=== PATIENT | female | born 1955 | race Caucasian/White ===

== ENCOUNTER 2025-06-06 18:38 | Inpatient (IN) | payer MEDICARE, SELFPAY ==
--- NOTE | 2025-06-06 18:54 | CT_ITS ---
PROCEDURE INFORMATION: Exam: CT Abdomen And Pelvis With Contrast Exam date and time: 06/06/2025 8:37 PM Age: 69 years old Clinical indication: Abdominal pain; Additional info: Rlq pain, n/v/d, appendicitis? TECHNIQUE: Imaging protocol: Computed tomography of the abdomen and pelvis with contrast. Radiation optimization: All CT scans at this facility use at least one of these dose optimization techniques: automated exposure control; mA and/or kV adjustment per patient size (includes targeted exams where dose is matched to clinical indication); or iterative reconstruction. Contrast material: ISOVUE; Contrast volume: 75 ml; Contrast route: IV; COMPARISON: No relevant prior studies available. FINDINGS: Liver: Normal. No mass. Gallbladder and biliary ducts: Gallbladder is surgically absent. Moderate diffuse biliary ductal dilation. Pancreas: Normal. No ductal dilation. Spleen: Normal. No splenomegaly. Adrenal glands: Normal. No mass. Kidneys and ureters: Simple appearing bilateral renal cortical cysts, the largest measuring 5.8 cm of the lower pole of the right kidney. 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 No evidence of solid renal mass or hydronephrosis. Stomach and bowel: Moderate sigmoid diverticulosis. No bowel wall thickening or evidence of bowel obstruction Appendix: The appendix is significantly enlarged (20 mm maximum diameter) with prominent diffuse wall thickening and surrounding inflammation compatible with acute appendicitis. No evidence of appendicular abscess or perforation. Intraperitoneal space: Unremarkable. No free air. No significant fluid collection. Vasculature: Moderate atherosclerotic calcification throughout the distal aorta and iliac arteries. No evidence of aneurysm or dissection. Lymph nodes: Unremarkable. No enlarged lymph nodes. Urinary bladder: Unremarkable as visualized. Reproductive: Mildly enlarged and lobulated uterus with coarse calcifications compatible with leiomyomas. No adnexal abnormality. Bones/joints: Moderate to severe degenerative disc changes with disc bulge and uncovertebral spurring throughout the lower spine. Severe multilevel facet arthropathy with grade 1 anterolisthesis of L2. Moderate multilevel anterior osteophyte formation throughout the lower thoracic spine. No vertebral body compression. No acute fracture. Bilateral hip prostheses noted. Soft tissues: Unremarkable. IMPRESSION: Significant findings of acute appendicitis. No evidence of rupture or abscess. COMMENTS: Consistent with the [employer]'s Incidental Findings Committee white paper (J Am Lindsey Radiol 2018): Any incidental renal lesion less than 1 cm or classified as too small to characterize, or any incidental cystic renal lesion characterized as simple-appearing, is likely benign. No follow-up imaging is recommended for these lesions per consensus recommendations based on imaging criteria. THIS REPORT CONTAINS FINDINGS THAT MAY BE CRITICAL TO PATIENT CARE. The findings were verbally communicated via telephone conference with Zach Florentino at 9:22 PM EST on 06/06/2025. The findings were acknowledged and understood.
[2025-06-06 18:56] VITALS: BP 162/95; PULSE 120; RESP 18; TEMP 37.3; O2SAT 96; BMI 34.3
--- NOTE | 2025-06-06 18:56 | HMH.EDGENADL ---
Discharge Plan Disposition Patient Disposition: Home, Self-Care Condition: Good Clinical Impressions Clinical Impression: Acute appendicitis, Hypomagnesemia Discharge ED Provider: Zach Florentino General Adult HPI General Chief complaint: Abdominal Pain Stated complaint: Vomiting, diarrhea, fatigue, Pain on right side Time Seen by Provider: 06/06/25 18:49 History of Present Illness HPI narrative: Alondra Ribeiro is a 69-year-old female with a history of cholecystectomy, hip replacements who presents to the emergency department for complaints of nausea, vomiting and diarrhea lower quadrant abdominal pain. Patient states that she was woken at 2:00 this morning with nausea, vomiting and diarrhea. She describes her vomit as nonbloody. Her diarrhea is nonbloody. She states that throughout the day, she has had worsening right lower quadrant pain that worsens with palpation. She denies any fevers. She has not been able to keep any food or liquid down. No known sick contacts. Related Data Home Medications ?Medication ?Instructions ?Recorded ?Confirmed duloxetine 30 mg capsule,delayed 30 mg PO DAILY 06/06/25 06/06/25 release hydrocodone 10 mg-acetaminophen 1 tab PO Q4HP PRN Moderate Pain 06/06/25 06/07/25 325 mg tablet (Scale Score 5-6) nabumetone 750 mg tablet 750 mg PO BID 06/06/25 06/06/25 Allergies Allergy/AdvReac Type Severity Reaction Status Date / Time No Known Allergies Allergy Verified 06/06/25 19:01 [facility] Disclaimer: The information contained in this section may have been updated after the patient was seen, as this information can be updated by other users. Social History (Updated 06/07/25 @ 07:00 by Yann Turner CRNA) Smoking Status: Current every day smoker alcohol intake: never substance use type: denies use current occupational status: retired Travel in the last 8 weeks?: None Have you lived/traveled outside [place] in past 30 days?: No Contact w/someone who lives/traveled outside US past 30 days?: No Exposure to someone with infectious disease in past 14 days?: No Do you have a fever (greater than 100.4 F or 38 C)?: No Have you tested positive for COVID-19?: No Exposed to someone with COVID-19 in past 14 days?: No Do you have a sore throat?: No Do you have a cough?: No Do you have any weakness?: No Are you experiencing any nausea/vomitting?: No Do you have any diarrhea?: No Are you experiencing any unusual bleeding?: No Do you have any muscle aches/pain?: No Do you have any abdominal pain?: No Are you experiencing loss of taste or smell?: No ROS Obtained: Yes Systems reviewed as appropriate & no additional complaints except as documented Physical Exam General General appearance: alert Comment: appears uncomfortable Head Head exam: atraumatic Eye Eye exam: Present normal appearance ENT ENT exam: Present normal external ear exam Neck Neck exam: Present full ROM Chest Chest inspection: Present symmetric chest wall rise Respiratory Respiratory exam: Present normal lung sounds bilaterally; Absent respiratory distress, wheezes or stridor Cardiovascular Cardiovascular exam: Present normal rhythm and tachycardia Abdominal Exam Abdominal exam: Present soft, tenderness (RLQ, suprapubic), guarding (RLQ), rebound, obturator sign, Rovsing's sign and tenderness at McBurney's Point; Absent rigidity or heel tap sign Extremities Exam Extremities exam: Present normal inspection Back Exam Back exam: Present normal inspection Neurological Exam Neurological exam: Present alert and oriented X3 Psychiatric Psychiatric exam: Present normal affect Skin Skin exam: Present warm and dry Medical Decision Making Medical Records Screening: Per USPSTF and CDC recommendations, given the prevalence of disease in our region, it is our hospital?s policy to screen for HIV and viral Hepatitis for all patients aged 18 and over and those with ongoing risk factors. Uday Inquiry Pt receiving controlled substance: No Vital Signs: 06/06/25 18:56 06/06/25 19:22 06/06/25 22:04 Temperature 99.1 F Temperature Source Oral Pulse Rate 107 H 98 H Pulse Rate [Right Radial] 120 H Respiratory Rate 18 21 18 Blood Pressure 141/84 H 144/78 H Blood Pressure [Right Arm] 162/95 H Blood Pressure Mean [Right Arm] 117 Blood Pressure Source [Right Arm] Automatic Cuff Blood Pressure Position [Right Arm] Sitting 02 Sat by Pulse Oximetry 96 95 95 Oxygen Delivery Method Room Air Room Air Room Air 06/06/25 22:10 06/06/25 22:17 Temperature 98.6 F Temperature Source Pulse Rate 98 H Pulse Rate [Right Radial] Respiratory Rate 18 Blood Pressure 144/78 H Blood Pressure [Right Arm] Blood Pressure Mean [Right Arm] Blood Pressure Source [Right Arm] Blood Pressure Position [Right Arm] 02 Sat by Pulse Oximetry Oxygen Delivery Method Room Air Room Air Lab Data Lab Results 06/06/25 18:58: WBC 17.1 H, RBC 4.50, Hgb 15.3, Hct 43.4, MCV 96.4, MCH 34.0 H, MCHC 35.3, RDW 13.1, Plt Count 255, MPV 11.2 H, Neut % (Auto) 86.3 H, Lymph % (Auto) 7.3 L, [place] % (Auto) 5.6, Eos % (Auto) 0.0 L, Baso % (Auto) 0.1, Neut # (Auto) 14.7 H, Lymph # (Auto) 1.3, [place] # (Auto) 1.0, Eos # (Auto) 0.0, Baso # (Auto) 0.0, Sodium 136, Potassium 4.4, Chloride 101, Carbon Dioxide 23, Anion Gap 16.4 H, BUN 18 H, Creatinine 0.50 L, Estimated Creat Clear 78, Estimated GFR 123, Est GFR ( Amer) 149, Glucose 137 H, Lactate 1.5, Calcium 9.6, Magnesium 1.5 L, Total Bilirubin 0.9, AST 35, ALT 27, Alkaline Phosphatase 79, C-Reactive Protein 37.6 H, Total Protein 8.1, Albumin 4.7, Globulin 3.4 H, Albumin/Globulin Ratio 1.4, Lipase 18 L, HCV Ab ROCHELLE w/Rflx PCR Qn Negative, HIV Ag/Ab Combo Qual Negative 06/06/25 21:11: Urine Color Yellow, Urine Appearance Clear, Urine pH 6.0, Ur Specific [place] 1.010, Urine Protein Negative, Urine Glucose (UA) Negative, Urine Ketones Negative, Urine Blood Trace-i, Urine Nitrate Negative, Urine Bilirubin Negative, Urine Urobilinogen 0.2, Ur Leukocyte Esterase Negative, Urine RBC None, Urine WBC Occasional, Ur Squamous Epith Cells Occasional, Urine Bacteria None 06/07/25 05:42 06/07/25 05:42 Orders (Tests/Meds): ED MEDICATIONS Generic Name Dose Route Start Last Admin Trade Name Freq PRN Reason Stop Dose Admin Hydromorphone HCl 0.5 mg 06/07/25 10:39 Hydromorphone 2mg/Ml Syringe IV 06/07/25 12:39 Q5MINP PRN Severe Pain (7-10) Sodium Chloride 1,000 mls @ 100 mls/hr 06/06/25 22:45 06/07/25 11:11 Sod Chlor 0.9% 1000ml Bag IV 07/06/25 22:44 100 mls/hr .Q10H HAYLIE Administration Piperacillin Sod/Tazobactam 50 mls @ 100 mls/hr 06/07/25 04:00 06/07/25 11:42 Sod 3.375 gm/ Sodium Chloride IV 06/17/25 03:59 Infused Q6H HAYLIE Infusion Lactated Ringer's 1,000 mls @ 25 mls/hr 06/07/25 06:45 06/07/25 06:40 Lactated Ringer's 1000 Ml Bag IV 07/07/25 06:44 25 mls/hr .Q25H HAYLIE Administration Lactated Ringer's 1,000 mls @ 25 mls/hr 06/07/25 10:45 06/07/25 11:19 Lactated Ringer's 1000 Ml Bag IV 06/07/25 12:44 Not Given .Q25H HAYLIE Meperidine HCl 12.5 mg 06/07/25 10:39 Meperidine 25mg/Ml 1ml Syringe IV 06/07/25 12:39 Q5MINP PRN Shivering Morphine Sulfate 4 mg 06/06/25 22:34 06/07/25 05:37 Morphine 2mg/Ml Syringe IV 07/06/25 22:32 4 mg Q4HP PRN Administration Severe Pain (7-10) Morphine Sulfate 2 mg 06/07/25 10:39 Morphine 2mg/Ml Syringe IV 06/07/25 12:39 Q5MINP PRN Moderate Pain (4-6) Naloxone HCl 0.4 mg 06/07/25 10:39 Naloxone 0.4mg/Ml Vial IV 06/07/25 12:39 Q3MINP PRN Decreased Respirations Ondansetron HCl 4 mg 06/06/25 22:33 06/06/25 23:08 Ondansetron 4mg/2ml Vial IV 07/06/25 22:32 4 mg Q6HP PRN Administration Nausea Ondansetron HCl 4 mg 06/07/25 10:39 Ondansetron 4mg/2ml Vial IV 06/07/25 12:39 Q6HP PRN Nausea Promethazine HCl 6.25 mg 06/07/25 10:39 Promethazine Hcl 25mg/Ml 1ml Vial IV 06/07/25 12:40 [id number] PRN Nausea And Vomiting Sodium Chloride 10 ml 06/06/25 22:33 Sodium Chloride 0.9% 10ml Flush Syringe IV 07/06/25 22:32 NEEDED PRN Maintain IV Site Sodium Chloride 10 ml 06/07/25 10:39 Sodium Chloride 0.9% 10ml Flush Syringe IV 07/07/25 10:38 NEEDED PRN Maintain IV Site Sodium Chloride 25 ml 06/07/25 10:39 Sodium Chloride 0.9% 25ml Bag IV 06/07/25 12:40 NEEDED PRN for Use with IV Promethazine Discontinued Medications Generic Name Dose Route Start Last Admin Trade Name Freq PRN Reason Stop Dose Admin Lactated Ringer's 1,000 mls @ 999 mls/hr 06/06/25 18:54 06/07/25 07:31 Lactated Ringer's 1000 Ml Bag IV 06/06/25 19:54 Infused .Q1H1M ONE Infusion Magnesium Sulfate 2 gm in 50 mls @ 50 mls/hr 06/06/25 19:24 06/06/25 21:53 Magnesium Sulfate 2gm/50ml Premix IV 06/06/25 20:23 Infused ONCE ONE Infusion Piperacillin Sod/Tazobactam 100 mls @ 200 mls/hr 06/06/25 21:42 06/07/25 07:31 Sod 4.5 gm/ Sodium Chloride IV 06/06/25 22:11 Infused ONCE ONE Infusion Iopamidol 75 ml 06/06/25 20:41 06/06/25 20:41 Iopamidol-370 (76%);100ml Bottle IV 06/06/25 20:42 75 ml ONCE ONE Administration Morphine Sulfate 4 mg 06/06/25 18:54 06/06/25 19:11 Morphine 4mg/Ml Syringe IV 06/06/25 18:55 4 mg ONCE ONE Administration Morphine Sulfate 2 mg 06/06/25 22:33 Morphine 2mg/Ml Syringe IV 07/06/25 22:32 Q4HP PRN Severe Pain (7-10) Ondansetron HCl 4 mg 06/06/25 18:57 06/06/25 19:11 Ondansetron 4mg/2ml Vial IV 06/06/25 18:58 4 mg ONCE ONE Administration Sodium Chloride 10 ml 06/06/25 20:41 06/06/25 20:41 Sodium Chloride 0.9% 10ml Syr (Rad Only) IV 07/06/25 20:40 10 ml NEEDED PRN Administration Maintain IV Site Sodium Chloride 10 ml 06/07/25 06:34 Sodium Chloride 0.9% 10ml Flush Syringe IV 07/07/25 06:33 NEEDED PRN Maintain IV Site ORDERS Category Date Time Status CT abdomen pelvis w con Stat Cat Scan 06/06/25 18:54 Completed CBC w/Auto Diff [Complete Blood Count Auto Diff] Stat Lab 06/06/25 18:58 Completed CMP [Comprehensive Metabolic Panel] Stat Lab 06/06/25 18:58 Completed CRP [C-Reactive Protein] Stat Lab 06/06/25 18:58 Completed Lactic Acid Stat Lab 06/06/25 18:58 Completed Lipase Stat Lab 06/06/25 18:58 Completed Magnesium Stat Lab 06/06/25 18:58 Completed UA [Urinalysis and Microscopic] Stat Lab 06/06/25 21:11 Completed Medical Decision Narrative: Alondra Ribeiro is a 69-year-old female with a history of cholecystectomy, hip replacements who presents to the emergency department for complaints of nausea, vomiting and diarrhea lower quadrant abdominal pain. Patient states that she was woken at 2:00 this morning with nausea, vomiting and diarrhea. She describes her vomit as nonbloody. Her diarrhea is nonbloody. She states that throughout the day, she has had worsening right lower quadrant pain that worsens with palpation. She denies any fevers. She has not been able to keep any food or liquid down. No known sick contacts. On arrival, patient is tachycardic, hypertensive, afebrile and maintaining appropriate oxygen saturation on room air. Physical exam, as stated above, revealed a nontoxic-appearing female who appears somewhat uncomfortable. Cardiopulmonary exam revealed tachycardia without murmur or rub. Abdomen shows tenderness in the right lower quadrant with guarding in this area. Positive obturator sign. Positive Rovsing sign. Negative heeltap sign. Abdomen is not rigid/peritonitic. Differential diagnosis includes, but is not limited to: Acute appendicitis, diverticulitis, gastroenteritis, colitis, urinary tract infection, among others. The most morbid conditions were considered and workup was based on these. Patient was administered 1 L lactated ringer, 4 mg of IV morphine, 4 mg of IV Zofran Laboratory studies show leukocytosis with neutrophilia. No anemia. Platelets within normal limits. Electrolytes within normal limits. No RODRICK. Anion gap mildly elevated at 16.4. Mild hypomagnesemia of 1.5. Will replete magnesium with 2 g IV magnesium sulfate. Liver enzymes and bilirubin within normal limits. CRP is elevated at 37.6. Lipase normal at 18. Lactate normal at 1.5. CT imaging was interpreted by me personally. Patient has a grossly enlarged appendix at 20 mm with wall thickening and surrounding inflammatory changes consistent with acute appendicitis but no evidence of abscess or perforation. See radiology report for details. I did discuss patient's case with Dr. Rayo with general surgery who recommended admission, IV antibiotics and likely surgical intervention in the morning. On reassessment, patient remains in stable condition. Her tachycardia is improving. Pain is better controlled at this time. I discussed these results with her and plan as mentioned above and she is in agreement with this plan. Will administer 4.5 g of IV Zosyn. I did discuss patient's case with Dr. Vasquez with the hospital medicine service who agreed to admit the patient for further management. Critical Care Critical Care Time Critical Care Time: Yes Attestation: On 06/06/25, the high probability of a clinically significant, sudden or life threatening deterioration of the following system(s) required my full and direct attention, intervention and personal management. The time I documented below is in addition to time spent performing reported procedures but includes the following listed in this critical care notation. Total Time Total Critical Care Time: 35
[2025-06-06 19:04] LABS: Hematocrit 43.4 % (37.0-47.0); Hemoglobin 15.3 g/dL (12.2-16.2); Immature Granulocytes % 0.7 %; Mean Corpuscular HGB Conc 35.3 g/dL (31.8-35.4); Mean Corpuscular Hemoglobin 34.0 pg (27.0-31.2); Mean Corpuscular Volume 96.4 fl (81-99); Nucleated Red Blood Cells % 0 %; Platelet Count 255 K/mm3 (142-424); Red Blood Count 4.50 M/mm3 (4.20-5.40); Red Cell Distribution Width-SD 46.5 fL; White Blood Count 17.1 K/mm3 (4.8-10.8)
[2025-06-06] MEDS: LACTATED RINGERS 1000ML 1,000 ML 999 ML IV (19:11)
[2025-06-06] MEDS: MORPHINE 4MG/ML SYRINGE 4 MG IV (19:11)
[2025-06-06] MEDS: ONDANSETRON 4MG/2ML VIAL 4 MG IV ×2 (19:11→23:08)
[2025-06-06 19:13] LABS: Albumin Level 4.7 g/dl (3.5-5.0); Chloride 101 mmol/L (98-107); Potassium 4.4 mmoL/L (3.5-5.1); Sodium 136 mmol/L (136-145)
[2025-06-06 19:16] LABS: Alanine Aminotransferase 27 U/L (12-78); Albumin/Globulin Ratio 1.4 (1.1-1.8); Alkaline Phosphatase 79 U/L (38-126); Anion Gap 16.4 mEq/L (5-15); Aspartate Amino Transferase 35 U/L (14-36); Bilirubin,Total 0.9 mg/dl (0.2-1.3); Blood Urea Nitrogen 18 mg/dl (7-17); Calcium 9.6 mg/dl (8.4-10.2); Carbon Dioxide 23 mmol/L (22.0-30.0); Creatinine Clearance Estimated 78 mL/min (50-200); Creatinine,Serum 0.50 mg/dl (0.52-1.04); Estimated Glomerular Filt Rate 123 ml/min (>60); GFR (African American) 149 ML/MIN (>60); Globulin 3.4 g/dL (1.3-3.2); Glucose 137 mg/dl (74-100); Lipase 18 U/L (23-300); Magnesium 1.5 mg/dl (1.6-2.3); Total Protein,Serum 8.1 g/dl (6.3-8.2)
--- OUTSIDE RECORDS SUMMARY | 2025-06-06 19:17 | XMS_ITS | Clinical Summary ---
Author Organization [facility] Address [address] [place] [id number] Care Team Providers Care Patient Support Partner Name Role Phone Unavailable Primary Care Provider Unavailabl e Social History Tobacco Use Types Packs/Day Years Used Date Smoking Tobacco: Never Assessed Comments Unknown Sex and Gender Information Value Date Recorded Sex Assigned at Not on file Legal Sex Female 10:04 PM EST Gender Identity Not on file Sexual Orientation Not on file Plan of Treatment Not on file
--- OUTSIDE RECORDS SUMMARY | 2025-06-06 19:18 | XMS_ITS | Clinical Summary ---
Author Organization [facility] Address [address] [place] [address] [address] [facility] [id number] Phone Care Team Providers Care Acoustic Sensor Operator Name Role Phone Fam Whitehead MD Primary Care Provider Unava ilable Allergies No known active allergies Medications nabumetone (RELAFEN) 750 mg Oral Tablet Take 750 mg by mouth 2 times daily. 1 Active DULoxetine (CYMBALTA) 30 mg Oral Capsule, Delayed Release(E.C.) Take 30 mg by mouth daily. 4 Active amoxicillin (AMOXIL) 500 mg Oral Capsule TAKE 4 CAPS 1 HOUR PRIOR TO DENTAL APPOINTMENT 3 Active HYDROcodone-mary taminophen (NORCO) 7.5-325 mg Oral Tablet TAKE 1 TO 2 TABLETS BY MOUTH EVERY 4 TO 6 HOURS NEEDED FOR PAIN *08/08/23 4 Active Active Problems Problem Noted Date Diagnosed Date History of colon polyps 05/17/2024 Overview (05/17/2024): Done 12/27, 13 polyps removed, due 2023 Assessment & Plan (05/17/2024 2:52 PM EST): Refer to GI, due for repeat colonoscopy Cervical cancer screening 08/12/2023 Assessment & Plan (08/12/2023 6:15 PM EST): I will recommend another pap in 3years. She does not have a history of pap for the past 10 years , so will need to continue pap till age 72 . Screening mammogram, encounter for 08/12/2023 Assessment & Plan (05/17/2024 2:32 PM EST): Up to date Well adult exam 04/24/2022 Assessment & Plan (05/17/2024 2:32 PM EST): Doing well, keep active, walk often, annual labs. Pt working on wt loss. Sees COMP FIELD CASE MANAGER. Assessment & Plan (05/09/2023 2:04 PM EDT): Doing well, keep active, walk often, annual labs. Pt working on her weight. And elevated blood sugar in past. Pt being referred to telegraph editor for pap. Prior paps all normal Assessment & Plan (04/24/2022 2:32 PM EDT): Doing well, keep active, walk often. Annual labs. Did have elevated bs of 107 last year,will re ck cmp. Concern is wt gain this year. dexa scan. Last pap= maybe 10 years? Does not want pap. Pt done with paps,prior paps all normal Screening for colon cancer 04/24/2022 Assessment & Plan (05/17/2024 2:33 PM EST): Has repeat colonoscopy scheduled, multiple polyps Assessment & Plan (05/09/2023 2:06 PM EDT): Had positive cologuard last year with follow up colonoscopy resulting in 13 polyps, has repeat colonscopy scheduled Assessment & Plan (04/24/2022 2:33 PM EDT): Last colon cancer screen= never can do cologuard. Will order Obesity, Class II, BMI 35-39.9 04/24/2022 Assessment & Plan (05/17/2024 2:44 PM EST): Working on wt loss. Same wt as last year. Assessment & Plan (05/09/2023 2:12 PM EDT): Working on wt loss, gained 8# this year, recommend intermittent fasting. Lowering calories, can refer to repair specialist Assessment & Plan (04/24/2022 2:24 PM EDT): Gained 16# this year, now with new hip needs to walk more and reduce calories, recommend intermittent fasting Post-menopausal 04/24/2022 Assessment & Plan (05/17/2024 2:37 PM EST): Dexa due 2024 Assessment & Plan (05/09/2023 2:07 PM EDT): Had dexa last year= normal, due 2023 Assessment & Plan (04/24/2022 2:28 PM EDT): Will order dexa Arthritis of knee, left 04/24/2022 Assessment & Plan (05/17/2024 2:35 PM EST): Sees ortho, nayen norco and relafen Assessment & Plan (05/09/2023 2:09 PM EDT): Sees ortho, managing norco and relafen Assessment & Plan (04/24/2022 2:34 PM EDT): Sees ortho, on pain meds per ortho Major depressive disorder, recurrent episode, mi ld 04/24/2022 Assessment & Plan (05/17/2024 2:34 PM EST): Sees spec. Doing well on cymbalta Assessment & Plan (05/09/2023 2:08 PM EDT): Sees specialist, doing well on cymbalta Assessment & Plan (04/24/2022 2:35 PM EDT): Sees specialist. Doing well on duloxetine Elevated BP without diagnosis of hypertension Assessment & Plan (05/17/2024 2:37 PM EST): Good bp, cmp and lipids done 04/29, stable to good Assessment & Plan (05/09/2023 2:08 PM EDT): Good bp today, cmp, lipids Assessment & Plan (04/24/2022 2:10 PM EDT): Good bp today, will check labs Assessment & Plan (07/25/2021 3:35 PM EST): Good bp today, keep active, continue wt loss. Annual labs 03/28 Assessment & Plan (06/13/2021 1:33 PM EST): Recently had labs done ,reassuring, will get copies. Already working on wt loss, lose 2 more pounds before surgery. Already lost 9. Avoid salt. Gentle bicycle indoor, riding till surgery . Re ck 3 weeks after surgery Arthritis of right hip 06/13/2021 Overview (04/24/2022): Hip replaced 06/26 Assessment & Plan (05/17/2024 2:35 PM EST): Doing well after hip replacement, on relafen prn Assessment & Plan (05/09/2023 2:08 PM EDT): Doing well after hip replacement Assessment & Plan (04/24/2022 2:09 PM EDT): Doing well after hip replacement Assessment & Plan (06/13/2021 1:35 PM EST): Been battling for years. Having surgery this month, gentle bicycle program Resolved Problems Problem Noted Date Diagnosed Date Resolved Date Cervical radiculitis 05/09/2023 024 Assessment & Plan (05/09/2023 2:21 PM EDT): X 1 week. Right side. Affecting right arm. Already on relafen. Check ergonomic of computer, try not to look down on phone, if persists, consider steroids. Positive colorectal cancer s creening using Cologuard test 06/20/2022 05/09/2023 Overview (06/20/2022): Added automatically from request for surgery [id number] Immunizations Immunization Administration Dates Next Due Influenza High Dose 05/17/2024 Influenza Vaccine Quadrivalent Adjuvanted 2022 Influenza Vaccine Quadrivalent PF 04/24/2022 Pfizer SARS-CoV-2 Vaccine 12 + Yrs (Purple Cap) 05/24/2021,09/29/2020,09/08/2020 Pneumococcal Conjugate Vaccine 20 Valent 024 Tdap 05/09/2023 Zoster Recombinant 05/09/2023,04/24/2022 Surgical History Surgery Date Site/Laterality Comments CHOLECYSTECTOMY 07/07/2001 - 07/06/2002 MOUTH SURGERY 05/18/2021 TOTAL HIP ARTHROPLASTY 06/26/2021 Right COLONOSCOPY 06/28/2022 N/A COLONOSCOPY WITH POLYPECTOMY ; Surgeon: Cash Baum MD; Location: [facility]; Service: Endoscopy COLONOSCOPY 12/30/2022 N/A COLONOSCOPY with polypectomy and sclerotherapy; Surgeon: Cash Baum MD; Location: [facility] END[facility]COPY; Service: Endoscopy CATARACT REMOVAL 08/07/2022 - 09/03/2022 Right Medical History Medical History Date Comments Chronic pain of right hip 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 Depression Positive colorectal cancer s creening using Cologuard test 06/20/2022 Added automatically from req uest for surgery [id number] Family History Medical History Relation Name Comments Hypertension Brother Hypertension Father Colon Cancer Maternal Grandfather Other Mother Pulmonary embol ium Aneurysm Sister Hypertension Sister Relation Name Status Comments Brother Alive Father Alive Maternal Grandfather Mother Sister Alive Social History Tobacco Use Types Packs/Day Years Used Date Smoking Tobacco: Some Days Cigarettes Last attempted to quit: 05/2021 Smokeless Tobacco: Never Tobacco Cessation:Ready to Q uit: Not Asked Alcohol Use Standard Drinks/Week Comments Yes 0 (1 standard drink = 0.6 oz pur e alcohol) rarely Overall Financial Resource Strain (CARDIA) Answe r Date Recorded How hard is it for you to pa y for the very basics like food, housing, medical care, and heating? Not hard at all 05/12/2024 PHQ-2 Answer Date Recorded PHQ-2 Total Score 0 04/24/2022 Hunger Vital Sign Answer Date Recorded Within the past 12 months, y ou worried that your food would run out before you got the money to buy more. Never true 05/12/20 24 Within the past 12 months, t he food you bought just didn't last and you didn't have money to get more. Never true 05/12/2024 PRAPARE - Transportation Answer Date Re corded In the past 12 months, has l ack of transportation kept you from medical appointments or from getting medications? No 12/2023 In the past 12 months, has l ack of transportation kept you from meetings, work, or from getting things needed for daily living? No 05/12/2024 Housing Stability Vital Sign Answer Yazan e Recorded In the last 12 months, was t here a time when you were not able to pay the mortgage or rent on time? No 05/09/2023 In the last 12 months, how many places have you lived? 1 05/09/2023 In the last 12 months, was t here a time when you did not have a steady place to sleep or slept in a fpc (including now)? No 05/09/2023 Comments Unknown Sex and Gender Information Value Date Recorded Sex Assigned at Female 08/11/2023 9:37 AM EST Legal Sex Female 1:50 PM EST Gender Identity Female 08/11/2023 9:37 AM EST Sexual Orientation Straight 08/11/2023 9: 37 AM EST Obstetrics History Para Term AB IAB SAB Ectopic Multiple Livin g Live Births 0 0 0 0 0 0 0 0 0 0 0 Last Filed Vital Signs Vital Sign Reading Time Taken Comments Blood Pressure 136/80 05/17/2024 2:34 PM EST Pulse 88 05/17/2024 2:34 PM EST Temperature 36.2 C (97.1 F) 12/30/2022 12:45 PM EDT Respiratory Rate 17 12/30/2022 1:05 PM EDT Oxygen Saturation 93% 05/17/2024 2:34 PM EST Inhaled Oxygen Concentration - - Weight 109.3 kg (241 lb) 05/17/2024 2:34 PM EST Height 165.1 cm (5' 5 ) 05/17/2024 2:34 PM EST Body Mass Index 40.1 05/17/2024 2:34 PM EST Plan of Treatment Health Maintenance Due Date Last Done Comments Hepatitis C Screening 12/21/1975 FIT 2002 Sigmoidoscopy 2002 Virtual Colonography 2002 RSV or 60+ (1 - Ris k 50-74 years 1-dose series) 12/21/2007 COVID-19 Vaccine (4 - 2024-2 6 season) 2025 05/24/2021, 09/29/2020, 09/08/2020 Influenza Vaccine (#1) 2025 , 05/09/2023, 04/24/2022 Annual Wellness Exam 05/17/2025 05/17/2024, 05/09/2023, 04/24/2022 Cologuard 06/10/2025 06/10/2022, 06/10/2022 Breast Cancer Screening 11/17/2025 11/18/19 25, 09/03/2023, 07/25/2022 Colon Cancer Screening 12/30/2025 Colonoscopy 12/30/2025 12/30/2022 DTaP/TDaP/Td (2 - Td or Tdap) 05/09/2033 05/09/2023 Zoster Completed 05/09/2023, 04/24/2022 Pneumococcal Vaccine 50+ Completed 05/17/2024 Bone Density Screening Completed 5, 07/25/2022 Hepatitis B Vaccine Aged Out No longe r eligible based on patient's age to complete this topic Meningococcal B Vaccine Aged Out No l onger eligible based on patient's age to complete this topic Procedures Procedure Name Priority Date/Time Associated Diagnosis Comments DX BONE DENSITY AXIAL SKELETON Routine 11/17/2024 2:11 PM EDT Post-menopausal MM MAMMO DIGITAL JET SCREEN W CAD BILAT Routine 11/17/2024 2:11 PM EDT Screening mammogram, encounter for COLOGUARD Routine 06/10/2022 4:00 AM EST Screening for colon cancer from Last 3 Months or Most Recently Relevant to Health Maintenance Results * DX BONE DENSITY AXIAL SKELETON (11/17/2024 2:11 PM EDT) Anatomical Region Laterality Modality Mammography 11/17/2024 1:46 PM EDT Impressions 11/17/2024 3:16 PM EDT Normal bone mineral density ASSESSMENT: WORLD HEALTH ORGANIZATION DEFINITION OF OSTEOPOROSIS AND OSTEOPENIA FOR POST MENOPAUSAL WOMEN Normal = T-Score at or above -1.0 standard deviations (SD) Osteopenia = T-Score between -1.0 and -2.5 SD Osteoporosis = T-Score at or below -2.5 SD Established Osteoporosis = T-Score at or below -2.5 SD plus fragility fracture WHO definitions only apply when a young healthy Woman reference database is used to determine T-Scores. The T-score compares this patient to young healthy individuals and is usually used for diagnosis based on World Health Organization criteria. For each one standard deviation below peak bone mass (T-score) lumbar spine fracture risk increases 2.3 fold and hip fracture risk increases 2.6 fold. In general, the fracture risk doubles for every one standard deviation decrease in T-score. Diagnosis of bone mineral density is based on the lowest T-score found in the imaging series. Narrative 11/17/2024 3:16 PM EDT DEXA SCAN COMPARISON: None INDICATION/HISTORY: Postmenopausal PA SPINE L1-L4: BMD = 1.233 g/cm2; T-SCORE = 1.7; Z-SCORE = 3.6 LEFT FOREARM: BMD = 0.662 g/cm2; T-SCORE = -0.4; Z-SCORE = 1.5 There is normal bone mineral density of the lumbar spine and left forearm FRAX ASSESSMENT: For [place] use only Consider FDA approved medical therapies in postmenopausal women and men age 50 years and older, based on the following: * A hip or vertebral ( clinical or morphometric) fracture. *T score less than or equal to -2.5 at the femoral neck or spine after appropriate evaluation to exclude secondary causes. * Low bone mass ( T score between -1.0 and -2.5 at the femoral neck or spine) and a 10 year probability of a hip fracture greater than or equal to 3% or a 10 year probability of a major osteoporosis-related fracture greater greater than or equal to 20% based on the [place] adapted WHO algorithm. * Clinicians judgment and or patient preferences may indicate treatment for people with ten-year fracture probabilities above or below these levels. Procedure Note Pilo Nova MD - 11/17/2024 DEXA SCAN COMPARISON: None INDICATION/HISTORY: Postmenopausal PA SPINE L1-L4: BMD = 1.233 g/cm2; T-SCORE = 1.7; Z-SCORE = 3.6 LEFT FOREARM: BMD = 0.662 g/cm2; T-SCORE = -0.4; Z-SCORE = 1.5 There is normal bone mineral density of the lumbar spine and left forearm FRAX ASSESSMENT: For [place] use only Consider FDA approved medical therapies in postmenopausal women and men age 50 years and older, based on the following: * A hip or vertebral ( clinical or morphometric) fracture. *T score less than or equal to -2.5 at the femoral neck or spine after appropriate evaluation to exclude secondary causes. * Low bone mass ( T score between -1.0 and -2.5 at the femoral neck or spine) and a 10 year probability of a hip fracture greater than or equal to 3% or a 10 year probability of a major osteoporosis-related fracture greater greater than or equal to 20% based on the [place] adapted WHO algorithm. * Clinicians judgment and or patient preferences may indicate treatment for people with ten-year fracture probabilities above or below these levels. IMPRESSION: Normal bone mineral density ASSESSMENT: WORLD HEALTH ORGANIZATION DEFINITION OF OSTEOPOROSIS AND OSTEOPENIA FOR POST MENOPAUSAL WOMEN Normal = T-Score at or above -1.0 standard deviations (SD) Osteopenia = T-Score between -1.0 and -2.5 SD Osteoporosis = T-Score at or below -2.5 SD Established Osteoporosis = T-Score at or below -2.5 SD plus fragility fracture WHO definitions only apply when a young healthy Woman reference database is used to determine T-Scores. The T-score compares this patient to young healthy individuals and is usually used for diagnosis based on World Health Organization criteria. For each one standard deviation below peak bone mass (T-score) lumbar spine fracture risk increases 2.3 fold and hip fracture risk increases 2.6 fold. In general, the fracture risk doubles for every one standard deviation decrease in T-score. Diagnosis of bone mineral density is based on the lowest T-score found in the imaging series. Fam Whitehead MD IMG DEXA ORDERABLES Final Re sult * MM MAMMO DIGITAL JET SCREEN W CAD BILAT (11/17/2024 2:11 PM EDT) Anatomical Region Laterality Modality Breast Bilateral Mammography 11/18/2024 12:3 4 PM EDT Impressions 11/18/2024 12:34 PM EDT ASSESSMENT: Negative (BiRads-1) RECOMMENDATION: Routine screening mammogram of both breasts in 1 year. A letter was sent to the patient on this date, with these results. Narrative 11/18/2024 12:34 PM EDT Patient History: Patient is postmenopausal and is nulliparous. Family history of prostate cancer at age 84 in father, colorectal cancer at age 50 or over in maternal grandfather. Last mammogram was performed 1 year and 2 months ago. Reason for exam: screening, asymptomatic. Z12.31 Risk Value(s): Tyrer-Cuzick 10 Year: 3.5%, Tyrer-Cuzick Lifetime: 6.9%, Myriad Table: 1.5%, STEPH 5 Year: 1.9%, NCI Lifetime: 6.7% MM MAMMO DIGITAL JET SCREEN W CAD BILAT 2D/3D Procedure 3D Bilateral CC and MLO view(s) were taken. 2D Bilateral CC and MLO view(s) were taken. Technologist: RT Jelani (R) (M) Prior study comparison: September 03, 2023, bilateral MM MAMMO DIGITAL JET SCREEN W CAD BILAT performed at [facility]. July 25, 2022, bilateral MM MAMMO DIGITAL JET SCREEN W CAD BILAT performed at [facility]. There are scattered areas of fibroglandular density. No suspicious masses, microcalcifications, or areas of architectural distortion to suggest malignancy. No significant changes when compared with prior studies. Procedure Note Hunter Fraire MD - 11/18/2024 Patient History: Patient is postmenopausal and is nulliparous. Family history of prostate cancer at age 84 in father, colorectal cancerat age 50 or over in maternal grandfather. Last mammogram was performed 1 year and 2 months ago. Reason for exam: screening, asymptomatic. Z12.31 Risk Value(s): Tyrer-Cuzick 10 Year: 3.5%, Tyrer-Cuzick Lifetime: 6.9%, Myriad Table:1.5%, STEPH 5 Year: 1.9%, NCI Lifetime: 6.7% MM MAMMO DIGITAL JET SCREEN W CAD BILAT 2D/3D Procedure 3D Bilateral CC and MLO view(s) were taken. 2D Bilateral CC and MLO view(s) were taken. Technologist: Cortney Redd, RT (R) (M) Prior study comparison: September 03, 2023, bilateral MM MAMMO DIGITAL JET SCREEN W CAD BILAT performed at [facility]. July 25, 2022, bilateral MM MAMMO DIGITAL JET SCREEN W CAD BILATperformed at [facility]. There are scattered areas of fibroglandular density. No suspiciousmasses, microcalcifications, or areas of architectural distortion to suggest malignancy. No significant changes when compared with prior studies. IMPRESSION: ASSESSMENT: Negative (BiRads-1) RECOMMENDATION: Routine screening mammogram of both breasts in 1 year. A letter was sent to the patient on this date, with these results. Fam Whitehead MD [facility] [place] [facility] ORDERABLES F inal Result * (ABNORMAL) COLOGUARD (06/10/2022 4:00 AM EST) COLOGUARD CLINICAL REPORT Positive( A) Negative [employer] Comment: POSITIVE TEST RESULT. A positive Cologuard result should be followed with a colonoscopy or visual examination of the colon. The normal value (reference range) for this assay is negative. TEST DESCRIPTION: Composite algorithmic analysis of stool DNA-biomarkers with hemoglobin immunoassay. Quantitative values of individual biomarkers are not reportable and are not associated with individual biomarker result reference ranges. Cologuard is intended for colorectal cancer screening of adults of either sex, 45 years or older, who are at average-risk for colorectal cancer (CRC). Cologuard has been approved for use by the U.S. FDA. The performance of Cologuard was established in a cross sectional study of average-risk adults aged 50-84. Cologuard performance in patients ages 45 to 49 years was estimated by sub-group analysis of near-age groups. Colonoscopies performed for a positive result may find as the most clinically significant lesion: colorectal cancer [4.0%], advanced adenoma (including sessile serrated polyps greater than or equal to 1cm diameter) [20%] or non- advanced adenoma [31%]; or no colorectal neoplasia [45%]. These estimates are derived from a prospective cross-sectional screening study of 10,000 individuals at average risk for colorectal cancer who were screened with both Cologuard and colonoscopy. (Luz Haney al, N Engl J Med 2014;370(14):9566-2781.) Cologuard may produce a false negative or false positive result (no colorectal cancer or precancerous polyp present at colonoscopy follow up). A negative Cologuard test result does not guarantee the absence of CRC or advanced adenoma (pre-cancer). The current Cologuard screening interval is every 3 years. ([place] [employer] Society and U.S. Multi-Society Task Force). Cologuard performance data in a 10,000 patient pivotal study using colonoscopy as the reference method can be accessed at the following location: [email or web address].Pixable/results. Additional description of the Cologuard test process, warnings and precautions can be found at [email or web address]. Stool 06/10/2022 4:00 AM EST 06/11/2022 3:15 PM EST Fam Whitehead MD [facility] [employer] - ORDERABLES F inal Result [employer] [address] [place] [address], [facility] [address] [place] [id number] from Last 3 Months or Most Recently Relevant to Health Maintenance Insurance PPO Care Teams Acoustic Sensor Operator Relationship Specialty Start Date End Date Fam Whitehead MD PCP - General Family Medicine 06/13/21
[2025-06-06 19:21] LABS: C-Reactive Protein 37.6 mg/L (0-4)
[2025-06-06 19:22] VITALS: BP 141/84; PULSE 107; RESP 21; O2SAT 95
[2025-06-06] MEDS: MAGNESIUM SULFATE IN WATER 2 GM/50 ML PIGGYBACK IV (19:46)
[2025-06-06] MEDS: IOPAMIDOL-370 (76%);100ML BOTTLE 75 ML IV (20:41)
[2025-06-06] MEDS: SODIUM CHLORIDE 0.9% 10ML SYR (RAD ONLY) 10 ML IV (20:41)
[2025-06-06 21:21] LABS: Microscopic, Urine URINE MICROSCOPIC (MICROSCOPIC)
[2025-06-06 21:23] LABS: Bilirubin,Urine Negative (Negative); Color,Urine YELLOW (Yellow); Glucose,Urine (UA) Negative (Negative); Ketones,Urine Negative (Negative); Leukocyte Esterase,Urine Negative (Negative); PH,Urine 6.0 (5.0-8.5); Protein,Urine Negative (Negative); Specific Gravity, Urine 1.010 (1.005-1.030); Urobilinogen,Urine 0.2 EU/dl (0.2)
[2025-06-06 21:32] LABS: Squamous Epithelial Cell,Urine Occasional #/hpf (0-5); WBC,Urine Occasional #/hpf (0-3)
[2025-06-06] MEDS: PIPERACILLIN/TAZO 4.5 GM in 0.9 % SODIUM CHLORIDE 100 ML IV (21:49)
[2025-06-06 22:04] VITALS: BP 144/78; PULSE 98; RESP 18; O2SAT 95
--- NOTE | 2025-06-06 22:16 | PC.NURSE ---
Report called to LEONARDO Marshall.
[2025-06-06 22:17] VITALS: BP 144/78; PULSE 98; RESP 18; TEMP 37; O2SAT 98
--- NOTE | 2025-06-06 22:36 | PC.NURSE ---
Patient arrived to floor via wheelchair from ED at 22:35.
[2025-06-06 22:54] VITALS: BP 170/93; PULSE 102; RESP 16; TEMP 37; O2SAT 96; BMI 37.6
[2025-06-06] MEDS: MORPHINE 2MG/ML SYRINGE 4 MG IV (23:08)
[2025-06-07] VITALS (18 sets, daily range): BP systolic 104–160; BP diastolic 58–97; PULSE 95–115; RESP 14–18; TEMP 36.5–37.3; O2SAT 91–98; BMI 37.6
[2025-06-07] MEDS: 0.9 % SODIUM CHLORIDE 1000ML 1,000 ML 100 ML IV ×2 (00:15→11:11)
--- NOTE | 2025-06-07 04:00 | P.HP_ITS ---
<Statement entered by Marcos Holbrook MD - 06/14/25 15:56> Agree with plan of care as outlined by the WELL SURVEYING ENGINEER. History of Present Illness *Admission Date: 07/07/25 *Reason for visit:: Abdominal pain *History of present illness: Patient is a 69-year-old female with past medical history significant for osteoarthritis, anxiety depression, cholecystectomy, hip replacement. Presents to [facility] ED with complaint of right lower abdominal pain with nausea, vomiting and diarrhea. Reports awakening early in the morning with nausea vomiting and diarrhea. Symptoms progressed throughout the day with worsening right lower quadrant abdominal pain. Patient denies any known alleviating factors. Presented tachycardic, hypertensive, afebrile otherwise stable on room air. CT abdomen and pelvis obtained revealing acute appendicitis. ED provider discussed case with on-call surgery who agreed with hospital admission. Patient denies fever, shortness of breath, chest pain, urinary symptoms, blood in stool or urine. Initial ED workup included laboratory studies and imaging as noted above. Significant laboratory findings included WBC 17.1, anion gap 16, BUN 18, magnesium 1.5, CRP 37, lipase 18. CT abdomen pelvis, I personally reviewed revealing acute appendicitis. Patient received IV Zosyn 4.5 gm, morphine 4 mg IV, magnesium 2 g, 1 L lactated ringer with initial ED treatment. Upon assessment of patient at bedside she was without acute distress. Hemodynamically stable. Room air. [facility] Disclaimer: The information contained in this section may have been updated after the patient was seen, as this information can be updated by other users. Medical History (Updated 06/07/25 @ 04:20 by Candy Baxter APRN) Right-sided chest wall pain Social History Smoking Status: Current every day smoker alcohol intake: never current occupational status: retired Travel in the last 8 weeks?: None Other Medical History Have you received the Flu Vaccine for this season: Yes Have you received the Pneumonia Vaccine: No Review of Systems Review of Systems Review of systems:: pertinent systems reviewed and negative unless documented below Constitutional Constitutional: Reports system reviewed and no additional complaints, except as documented and Reports as per HPI Eyes Eyes: Reports system reviewed and no additional complaints, except as documented and Reports as per HPI ENT Ears, Nose, Mouth, and Throat: Reports system reviewed and no additional complaints, except as documented and Reports as per HPI *Cardiovascular Cardiovascular: Reports system reviewed and no additional complaints, except as documented and Reports as per HPI *Respiratory Respiratory: Reports system reviewed and no additional complaints, except as documented and Reports as per HPI *Gastrointestinal Gastrointestinal: Reports as per HPI, Reports diarrhea and Reports vomiting *Genitourinary Genitourinary: Reports system reviewed and no additional complaints, except as documented, Reports as per HPI and Reports abnormal menses Comments: Right lower quadrant abdominal pain *Musculoskeletal Musculoskeletal: Reports system reviewed and no additional complaints, except as documented and Reports as per HPI Integumentary/Breasts Skin/Breast: Reports system reviewed and no additional complaints, except as documented and Reports as per HPI *Neurologic Neurologic: Reports system reviewed and no additional complaints, except as documented and Reports as per HPI Psychiatric Psychiatric: Reports system reviewed and no additional complaints, except as documented and Reports as per HPI Endocrine Endocrine: Reports system reviewed and no additional complaints, except as documented and Reports as per HPI Hematologic/Lymphatic Hematologic/Lymphatic: Reports system reviewed and no additional complaints, except as documented and Reports as per HPI Allergic/Immunologic Allergic/Immunologic: Reports system reviewed and no additional complaints, except as documented and Reports as per HPI Meds Home Medications and Allergies Home Medications ?Medication ?Instructions ?Recorded ?Confirmed ?Type duloxetine 30 mg capsule,delayed 30 mg PO DAILY 06/06/25 History release hydrocodone 10 mg-acetaminophen 1 tab PO Q4H PRN pain 06/06/25 06/06/25 History 325 mg tablet nabumetone 750 mg tablet 750 mg PO BID 06/06/2506/06 History New Prescriptions to Start Prescriptions: Allergies Allergy/AdvReac Type Severity Reaction Status Date / Time No Known Allergies Allergy Verified 06/06/25 19:01 Exam Data for Last 24 hours Vital signs and Labs for Last 24 Hours: Temp Pulse Resp BP Pulse Ox O2 Del Method 98.4 F 95 H 16 150/86 H 95 Room Air 06/07/25 00:00 06/07/25 00:00 06/07/25 00:00 06/07/25 00:00 06/07/25 00:00 06/07/25 01:00 Laboratory Results - last 24 hr 06/06/25 18:58: WBC 17.1 H, RBC 4.50, Hgb 15.3, Hct 43.4, MCV 96.4, MCH 34.0 H, MCHC 35.3, RDW 13.1, Plt Count 255, MPV 11.2 H, Neut % (Auto) 86.3 H, Lymph % (Auto) 7.3 L, [place] % (Auto) 5.6, Eos % (Auto) 0.0 L, Baso % (Auto) 0.1, Neut # (Auto) 14.7 H, Lymph # (Auto) 1.3, [place] # (Auto) 1.0, Eos # (Auto) 0.0, Baso # (Auto) 0.0, Sodium 136, Potassium 4.4, Chloride 101, Carbon Dioxide 23, Anion Gap 16.4 H, BUN 18 H, Creatinine 0.50 L, Estimated Creat Clear 78, Estimated GFR 123, Est GFR ( Amer) 149, Glucose 137 H, Lactate 1.5, Calcium 9.6, Magnesium 1.5 L, Total Bilirubin 0.9, AST 35, ALT 27, Alkaline Phosphatase 79, C-Reactive Protein 37.6 H, Total Protein 8.1, Albumin 4.7, Globulin 3.4 H, Albumin/Globulin Ratio 1.4, Lipase 18 L 06/06/25 21:11: Urine Color Yellow, Urine Appearance Clear, Urine pH 6.0, Ur Specific [place] 1.010, Urine Protein Negative, Urine Glucose (UA) Negative, Urine Ketones Negative, Urine Blood Trace-i, Urine Nitrate Negative, Urine Bilirubin Negative, Urine Urobilinogen 0.2, Ur Leukocyte Esterase Negative, Urine RBC None, Urine WBC Occasional, Ur Squamous Epith Cells Occasional, Urine Bacteria None I & O for Last 24 hours: Intake & Output 06/04/25 06/05/25 06/06/25 06/07/25 23:59 23:59 23:59 23:59 Intake Total 50 / 290 240 / 240 Balance 50 / 290 240 / 240 Weight 99.972 kg Constitutional Constitutional: no acute distress *Routine HEENT Exam Head: Present normocephalic and atraumatic Eye: Present EOMI, PERRL and normal accommodation ENT: Present mucous membranes moist *Routine Neck Exam Neck: Present supple and full ROM *Routine Respiratory Exam Respiratory: Present normal respiratory effort *Routine Cardiovascular Exam Cardiovascular: Present RRR, Normal S1 and Normal S2 *Routine Abdominal Exam Abdominal: Present soft and normoactive bowel sounds *Routine Rectal Exam Rectal:: deferred *Routine Genitalia Exam Genitalia:: deferred *Routine Extremities Exam Extremities: Present full ROM, pulses intact and normal capillary refill *Routine Skin Exam Skin: Present intact *Routine Neurological Exam Neurological: Present alert, oriented X3 and CN II-XII intact Routine Psychiatric Exam Psychiatric: Present normal affect Assessment and Plan *Assessment and plan (1) Acute appendicitis: Status: Acute Qualifiers: Acute appendicitis type: unspecified acute appendicitis type Qualified Code(s): K35.80 - Unspecified acute appendicitis Category: Medical Code(s): K35.80 - Unspecified acute appendicitis (2) Nausea vomiting and diarrhea: Status: Acute Category: Medical Code(s): R11.2 - Nausea with vomiting, unspecified; R19.7 - Diarrhea, unspecified (3) Leucocytosis: Status: Acute Qualifiers: Leukocytosis type: unspecified Qualified Code(s): D72.829 - Elevated white blood cell count, unspecified Category: Medical Code(s): D72.829 - Elevated white blood cell count, unspecified (4) Hypomagnesemia: Status: Acute Category: Medical Code(s): E83.42 - Hypomagnesemia Plan Assessment/plan Patient was discussed with the emergency department provider and agree with hospital admission for further treatment. Patient is a 69-year-old female presenting with right lower abdominal pain, nausea vomiting diarrhea with onset last night. Requested symptoms updated. Imaging as noted above with evidence of acute appendicitis. ED provider discussed case with on-call surgery Dr. Rayo who agreed for admission as well, to see in the morning with plan of surgery. IV Zosyn initiated in ED, resume therapy. IV fluids, IV morphine for pain management along with IV Zofran. N.p.o. after midnight. CBC, BMP, mag, INR/PT in the AM. 1. Acute appendicitis: Onset of symptoms yesterday evening. WBC 17, imaging study with CT abdomen pelvis as noted above with evidence of acute appendicitis. IV Zosyn, resume IV fluids for hydration, IV morphine for moderate to severe pain management, IV Zofran as needed for nausea management. N.p.o. after midnight. Morning labs with CBC, BMP and coags. 2. Hypomagnesemia: Magnesium level 1.5 per ED workup received 2 gm magnesium ED-monitor and replace electrolyte per protocol. Full code SCDs NPO
[2025-06-07] MEDS: PIPERCILLIN/TAZO 3.375 GM in 0.9 % SODIUM CHLORIDE 50 ML IV ×4 (04:36→21:28)
[2025-06-07] MEDS: MORPHINE 2MG/ML SYRINGE 4 MG IV ×4 (05:37→21:33)
--- NOTE | 2025-06-07 06:15 | EXP.SURG.CON ---
History of Present Illness *Admission Date: 07/07/25 *Reason for visit:: Appendicitis *History of present illness: Patient is a 69-year-old female from [facility] with past medical history significant for osteoarthritis, anxiety depression, cholecystectomy, hip replacement. She developed onset of nausea, vomiting, and diarrhea in the morning of 06/06/2025. Symptoms progressed throughout the day with development of abdominal pain localizing to the right lower quadrant becoming more severe. She presented to the emergency department at [facility] in the evening of 06/06/2025. Upon presentation to the emergency department patient was somewhat tachycardic and hypertensive. She had mild leukocytosis of 11,700. CT scan revealed findings of nonperforated appendicitis. Surgery was contacted. Plan was made for admission for inpatient appendectomy. [facility] Disclaimer: The information contained in this section may have been updated after the patient was seen, as this information can be updated by other users. Medical History (Updated 06/07/25 @ 04:20 by Candy Baxter APRN) Right-sided chest wall pain Social History (Updated 06/07/25 @ 07:00 by Yann Turner CRNA) Smoking Status: Current every day smoker alcohol intake: never substance use type: denies use current occupational status: retired Travel in the last 8 weeks?: None Have you lived/traveled outside US in past 30 days?: No Contact w/someone who lives/traveled outside US past 30 days?: No Exposure to someone with infectious disease in past 14 days?: No Do you have a fever (greater than 100.4 F or 38 C)?: No Have you tested positive for COVID-19?: No Exposed to someone with COVID-19 in past 14 days?: No Do you have a sore throat?: No Do you have a cough?: No Do you have any weakness?: No Are you experiencing any nausea/vomitting?: No Do you have any diarrhea?: No Are you experiencing any unusual bleeding?: No Do you have any muscle aches/pain?: No Do you have any abdominal pain?: No Are you experiencing loss of taste or smell?: No Review of Systems *Neurologic Neurologic: Reports system reviewed and no additional complaints, except as documented and Reports as per [facility] Meds Home Medications and Allergies Home Medications ?Medication ?Instructions ?Recorded ?Confirmed ?Type duloxetine 30 mg capsule,delayed 30 mg PO DAILY 06/06/25 06/06/25 History release hydrocodone 10 mg-acetaminophen 1 tab PO Q4HP PRN Moderate Pain 06/06/25 06/07/25 History 325 mg tablet (Scale Score 5-6) nabumetone 750 mg tablet 750 mg PO BID 06/06/25 06/06/25 History New Prescriptions to Start Prescriptions: Allergies Allergy/AdvReac Type Severity Reaction Status Date / Time No Known Allergies Allergy Verified 06/06/25 19:01 Exam (Inpt) Vital signs and Labs for Last 24 Hours: Temp Pulse Resp BP Pulse Ox O2 Del Method 98.6 F 105 H 16 154/95 H 93 L Room Air 06/07/25 04:00 06/07/25 04:00 06/07/25 04:00 06/07/25 04:00 06/07/25 04:00 06/07/25 04:00 Laboratory Results - last 24 hr 06/06/25 18:58: WBC 17.1 H, RBC 4.50, Hgb 15.3, Hct 43.4, MCV 96.4, MCH 34.0 H, MCHC 35.3, RDW 13.1, Plt Count 255, MPV 11.2 H, Neut % (Auto) 86.3 H, Lymph % (Auto) 7.3 L, [place] % (Auto) 5.6, Eos % (Auto) 0.0 L, Baso % (Auto) 0.1, Neut # (Auto) 14.7 H, Lymph # (Auto) 1.3, [place] # (Auto) 1.0, Eos # (Auto) 0.0, Baso # (Auto) 0.0, Sodium 136, Potassium 4.4, Chloride 101, Carbon Dioxide 23, Anion Gap 16.4 H, BUN 18 H, Creatinine 0.50 L, Estimated Creat Clear 78, Estimated GFR 123, Est GFR ( Amer) 149, Glucose 137 H, Lactate 1.5, Calcium 9.6, Magnesium 1.5 L, Total Bilirubin 0.9, AST 35, ALT 27, Alkaline Phosphatase 79, C-Reactive Protein 37.6 H, Total Protein 8.1, Albumin 4.7, Globulin 3.4 H, Albumin/Globulin Ratio 1.4, Lipase 18 L 06/06/25 21:11: Urine Color Yellow, Urine Appearance Clear, Urine pH 6.0, Ur Specific [place] 1.010, Urine Protein Negative, Urine Glucose (UA) Negative, Urine Ketones Negative, Urine Blood Trace-i, Urine Nitrate Negative, Urine Bilirubin Negative, Urine Urobilinogen 0.2, Ur Leukocyte Esterase Negative, Urine RBC None, Urine WBC Occasional, Ur Squamous Epith Cells Occasional, Urine Bacteria None I & O for Labs for Last 24 Hours: Intake & Output 06/04/25 06/05/25 06/06/25 06/07/25 11:59 11:59 11:59 11:59 Intake Total 340 / 340 Balance 340 / 340 Weight 220 lb 6.408 oz Comment:: Patient uncomfortable. GI: Present soft and tenderness Results Labs 06/07/25 05:42 06/07/25 05:42 Labs: Laboratory Results - last 24 hr 06/06/25 18:58: WBC 17.1 H, RBC 4.50, Hgb 15.3, Hct 43.4, MCV 96.4, MCH 34.0 H, MCHC 35.3, RDW 13.1, Plt Count 255, MPV 11.2 H, Neut % (Auto) 86.3 H, Lymph % (Auto) 7.3 L, [place] % (Auto) 5.6, Eos % (Auto) 0.0 L, Baso % (Auto) 0.1, Neut # (Auto) 14.7 H, Lymph # (Auto) 1.3, [place] # (Auto) 1.0, Eos # (Auto) 0.0, Baso # (Auto) 0.0, Sodium 136, Potassium 4.4, Chloride 101, Carbon Dioxide 23, Anion Gap 16.4 H, BUN 18 H, Creatinine 0.50 L, Estimated Creat Clear 78, Estimated GFR 123, Est GFR ( Amer) 149, Glucose 137 H, Lactate 1.5, Calcium 9.6, Magnesium 1.5 L, Total Bilirubin 0.9, AST 35, ALT 27, Alkaline Phosphatase 79, C-Reactive Protein 37.6 H, Total Protein 8.1, Albumin 4.7, Globulin 3.4 H, Albumin/Globulin Ratio 1.4, Lipase 18 L 06/06/25 21:11: Urine Color Yellow, Urine Appearance Clear, Urine pH 6.0, Ur Specific [place] 1.010, Urine Protein Negative, Urine Glucose (UA) Negative, Urine Ketones Negative, Urine Blood Trace-i, Urine Nitrate Negative, Urine Bilirubin Negative, Urine Urobilinogen 0.2, Ur Leukocyte Esterase Negative, Urine RBC None, Urine WBC Occasional, Ur Squamous Epith Cells Occasional, Urine Bacteria None Assessment and Plan *Assessment and plan (1) Acute appendicitis: Status: Acute Qualifiers: Acute appendicitis type: unspecified acute appendicitis type Qualified Code(s): K35.80 - Unspecified acute appendicitis Category: Medical Code(s): K35.80 - Unspecified acute appendicitis Plan Plan to proceed with expeditious laparoscopic possibly open appendectomy. I explained to her the nature and details of the proposed procedure along the associated risks and expected outcome. She understands and agrees to proceed.
[2025-06-07] MEDS: LACTATED RINGERS 1000ML 1,000 ML 25 ML IV (06:40)
[2025-06-07 06:56] LABS: Chloride 101 mmol/L (98-107)
[2025-06-07 06:57] LABS: Potassium 3.9 mmoL/L (3.5-5.1); Sodium 139 mmol/L (136-145)
--- NOTE | 2025-06-07 06:59 | P.PNANES_ITS ---
[facility] Disclaimer: The information contained in this section may have been updated after the patient was seen, as this information can be updated by other users. Medical History (Updated 06/07/25 @ 04:20 by Candy Baxter APRN) Right-sided chest wall pain Social History (Updated 06/07/25 @ 04:30 by Candy Baxter APRN) Smoking Status: Current every day smoker alcohol intake: never substance use type: denies use current occupational status: retired Travel in the last 8 weeks?: None [facility] Anesthesia Checklist Patient Identification Patient Identification: Arm Band and Verbal (Name & ) Structural Data Admitted From: Home Planned Operative Procedure/s: Laparoscopic appendectomy Consent for Planned Operative Procedure(s) Verified: Yes Verified Documents: Surgical Consent NPO Status Verified Time NPO: 00:00 Chart Verification Results Verified: CBC and BMP Additional verifications Anesthesia Reactions: No Airway Assessment Mallampati Score:: Class II C-Spine Mobility Assessed: Yes TMJ Mobility Assessed: Yes Dentition: Good Dentition Neurological Assessment Level of Consciousness: Awake, Alert and Appropriate Hx Seizures: No Numbness or tingling in extremities: No Anesthesia Plan Anesthesia Risk discussed: Yes Anesthesia Plan: Verified ASA Class: II Anesthesia Type: General
[2025-06-07 07:00] LABS: Anion Gap 13.9 mEq/L (5-15); Blood Urea Nitrogen 12 mg/dl (7-17); Calcium 9.0 mg/dl (8.4-10.2); Carbon Dioxide 28 mmol/L (22.0-30.0); Creatinine Clearance Estimated 86 mL/min (50-200); Creatinine,Serum 0.50 mg/dl (0.52-1.04); Estimated Glomerular Filt Rate 123 ml/min (>60); GFR (African American) 149 ML/MIN (>60); Glucose 135 mg/dl (74-100)
[2025-06-07 07:03] LABS: Hematocrit 43.1 % (37.0-47.0); Hemoglobin 14.8 g/dL (12.2-16.2); Immature Granulocytes % 0.6 %; Mean Corpuscular HGB Conc 34.3 g/dL (31.8-35.4); Mean Corpuscular Hemoglobin 33.3 pg (27.0-31.2); Mean Corpuscular Volume 97.1 fl (81-99); Nucleated Red Blood Cells % 0 %; Platelet Count 236 K/mm3 (142-424); Red Blood Count 4.44 M/mm3 (4.20-5.40); Red Cell Distribution Width-SD 47.8 fL; White Blood Count 15.4 K/mm3 (4.8-10.8)
[2025-06-07 07:05] LABS: Magnesium 1.9 mg/dl (1.6-2.3)
[2025-06-07 07:08] LABS: INR 1.08 (0.9-1.1); Prothrombin Time 11.9 seconds (10.1-12.5)
[2025-06-07] MEDS: SODIUM CHLORIDE IRRIG SOLUTION 3,000 ML 25 ML IR (07:39)
[2025-06-07] MEDS: LIDOCAINE 1% 20ML MDV 20 ML (07:39)
[2025-06-07 07:50] LABS: Hepatitis C Ab Qual. W/ RFX NEGATIVE (Negative)
--- NOTE | 2025-06-07 07:54 | HMH.PHAINT1 ---
Pharmacy Intervention Comments: MEDICATION RECONCILIATION COMPLETED ON PATIENT USING EXTERNAL FILL HISTORY FROM PHARMACY. -JACINTA BERMAN, YOVANID
--- NOTE | 2025-06-07 09:15 | HMH.PHAAMS2 ---
- Antimicrobial Stewardship Review culture & sensitivity review Stewardship interventions: culture & sensitivity review Comments: NO CULTURES ORDERED, PATIENT ON ZOSYN EMPIRICALLY FOR APPENDICITIS.
--- NOTE | 2025-06-07 10:30 | P.OP_ITS ---
Date of procedure: 06/07/25 Pre-op Diagnosis:: Acute appendicitis Post-op Diagnosis:: Acute necrotizing appendicitis with perforation and established peritonitis Procedure performed:: Laparoscopic appendectomy Surgeon:: Hua Rayo MD PROCUREMENT ANALYST:: Lorna Wilson Anesthesia: GETA Estimated blood loss (mL): 25 Clinical Note:: Patient is a 69-year-old female from [facility] with past medical history significant for osteoarthritis, anxiety depression, cholecystectomy, hip replacement. She developed onset of nausea, vomiting, and diarrhea in the morning of 06/06/2025. Symptoms progressed throughout the day with development of abdominal pain localizing to the right lower quadrant becoming more severe. She presented to the emergency department at [facility] in the evening of 06/06/2025. Upon presentation to the emergency department patient was somewhat tachycardic and hypertensive. She had mild leukocytosis of 11,700. CT scan revealed findings of nonperforated appendicitis. Surgery was contacted. Plan was made for admission for inpatient appendectomy. Patient was seen and examined. Arrangements were made for expeditious laparoscopic possibly open appendectomy. Operative findings:: Patient had evidence of necrotizing perforated appendix with established peritonitis characterized by induration and erythema of the bowel serosa diffusely and peritoneum with feculent liquid and fibrinopurulent exudate all consistent with established peritonitis from perforated appendix likely for appreciable time . Operative note:: Consent was obtained and patient was taken to the operating room. She was given additional preoperative intravenous antibiotics. General anesthesia was induced. Banks catheter was placed. Abdomen was prepped and draped in the standard surgical fashion. Infraumbilical skin incision was made in her previous laparoscopy scar. While performing abdominal wall lift a Veress needle was inserted. CO2 pneumoperitoneum was achieved to 15 mmHg. 12 mm optical trocar was inserted at the umbilicus. Intraperitoneal contents were visualized. She had evidence of established peritonitis with induration and erythema of the bowel serosa diffusely with evidence of some induration of the bowel wall consistent with ileus and some feculent liquid diffusely scattered throughout the peritoneum, pelvis, and right paracolic region as well as suprahepatic. 5 mm trocar was inserted in the left lower suprapubic location and in the right upper abdomen. 0 degree laparoscope replaced with 30 degree 5 mm laparoscope. Attention was turned to the right lower quadrant. Cecum was retracted medially. Dissection was carried out identifying the appendix which was markedly thickened and inflamed with evidence of necrosis and perforation near its apparent base. It was markedly enlarged and indurated with significant thickening of the surrounding tissues. It was grasped with an endoscopic Molly. Careful dissection was carried out through the mesoappendix with care taken to coagulate the appendiceal artery in the process using ultrasonic harmonic aixa. There was evidence of perforation near the base of the append ix and the proximal body. Dissection was carried down using some blunt dissection as there were well-established inflammatory adhesions. Ultimately dissection was carried down to relatively healthy tissue at the appendiceal base. The appendix was divided at its base with endoscopic PIPPA linear cutting stapling device. The appendix was placed within an Endo Catch retrieval device and removed from peritoneal cavity via the umbilical trocar site which required some generous extension of the fascial incision for extraction and delivery of the appendix. CO2 pneumoperitoneum was reestablished. Inspection was carried out and it appears that there was likely a small residual stump of the appendix. Due to the potential for leak or stump appendicitis plan was made for additional resection. The stump of the appendix was grasped with [place] and with multiple firings of the endoscopic PIPPA linear cutting stapling device the apparent residual stump of the appendix with small cuff of cecum was excised. Thorough irrigation and suctioning was then performed throughout the abdomen and pelvis and perihepatic space with several liters of saline until clear. There was a tiny amount of oozing from the appendiceal staple line and small amount of Surgicel was placed over the staple line. This resulted in good hemostasis. Trocars were then removed as CO2 pneumoperitoneum was evacuated. Fascia at the umbilicus was closed with multiple 0 Ethibond sutures. Local anesthetic was infiltrated. Skin incisions were closed with 4-0 Monocryl in a subcuticular fashion. Steri-Strips and dressings were applied. . Condition: stable Disposition: PACU Complications:: None immediately apparent
--- NOTE | 2025-06-07 10:38 | P.PNANES_ITS ---
[facility] Anesthesia Record Part I Anesthesia Record I Intake, IV Amount: 2,200 Hydration: Adequate Estimated blood loss (mL): 10 Urine output (mL): 100 Blood Pressure: 157/63 SaO2: 95 Pulse Rate: 114 Airway Patency: Patent Respiratory Rate: 18 Temperature: 97.7 F Patient is:: Awake, Nasal O2 and Stable Stable to PACU at:: 10:45
--- NOTE | 2025-06-07 11:18 | P.PN_ITS ---
<Statement entered by Marcos Holbrook MD - 06/14/25 15:54> Agree with plan of care as outlined by the COKEMAN. Subjective *Date: 06/07/25 *Time: 14:47 Interval history: Patient is now status post laparoscopic appendectomy. Patient was found to have acute necrotizing appendicitis with perforation and established peritonitis. Patient doing well postsurgery, medication ordered for pain. Ice chips today as tolerated, continuing IV antibiotics at this time. Medical Exam Vital signs and Labs for Last 24 Hours: Vital Signs Temp Pulse Pulse Resp BP BP Pulse Ox 06/07/25 11:05 97 H 18 150/75 H 98 06/07/25 10:55 102 H 18 114/78 97 06/07/25 10:45 106 H 18 104/58 L 97 06/07/25 10:38 97.7 F 114 H 18 157/63 H 06/07/25 10:35 97.7 F 115 H 18 157/63 H 91 L 06/07/25 06:23 98.6 F 105 H 16 154/95 H 93 L 06/07/25 05:00 06/07/25 04:00 98.6 F 105 H 16 154/95 H 93 L 06/07/25 03:00 06/07/25 01:00 06/07/25 00:00 98.4 F 95 H 16 150/86 H 95 06/06/25 23:00 06/06/25 22:54 98.6 F 102 H 16 170/93 H 96 06/06/25 22:17 98.6 F 98 H 18 144/78 H 06/06/25 22:10 06/06/25 22:04 98 H 18 144/78 H 95 06/06/25 19:22 107 H 21 141/84 H 95 06/06/25 18:56 99.1 F 120 H 18 162/95 H 96 O2 Del Method O2 Flow Rate 06/07/25 11:05 Nasal Cannula 5 06/07/25 10:55 Nasal Cannula 5 06/07/25 10:45 Nasal Cannula 5 06/07/25 10:38 06/07/25 10:35 Nasal Cannula 5 06/07/25 06:23 Room Air 06/07/25 05:00 Room Air 06/07/25 04:00 Room Air 06/07/25 03:00 Room Air 06/07/25 01:00 Room Air 06/07/25 00:00 Room Air 06/06/25 23:00 Room Air 06/06/25 22:54 Room Air 06/06/25 22:17 Room Air 06/06/25 22:10 Room Air 06/06/25 22:04 Room Air 06/06/25 19:22 Room Air 06/06/25 18:56 Room Air Intake and Output 06/06/25 06/07/25 06/07/25 23:59 07:59 15:59 Intake Total 50 / 290 1390 / 4590 3200 / 4590 Balance 50 / 290 1390 / 4590 3200 / 4590 Intake: Intake, Oral Amount 240 / 240 Intake, Total IV Amount 50 / 50 1150 / 4350 3200 / 4350 0.9 % Sodium Chloride 1000ML 1, 1000 / 1000 000 ml @ 100 mls/hr IV .Q10H [facility] Rx#:[id number] Lactated Ringers 1000ML 1,000 1000 / 1000 ml @ 999 mls/hr IV .Q1H1M [facility] Rx#:[id number] Magnesium Sulfate in Water 2 gm 50 / 50 In 50 ml @ 50 mls/hr IV ONCE [facility] Rx#:[id number] Piperacillin/Tazo 4.5 gm In 0.9 100 / 100 % Sodium Chloride 100 ml @ 200 mls/hr IV ONCE [facility] Rx#: [id number] Pipercillin/Tazo 3.375 gm In 0. 50 / 50 9 % Sodium Chloride 50 ml @ 100 mls/hr IV Q6H [facility] Rx#: [id number] Other: Weight 99.972 kg 99.972 kg Patient Weight 06/07/25 23:59 Weight 99.972 kg Laboratory Results - last 24 hr 06/06/25 18:58: WBC 17.1 H, RBC 4.50, Hgb 15.3, Hct 43.4, MCV 96.4, MCH 34.0 H, MCHC 35.3, RDW 13.1, Plt Count 255, MPV 11.2 H, Neut % (Auto) 86.3 H, Lymph % (Auto) 7.3 L, Gordon % (Auto) 5.6, Eos % (Auto) 0.0 L, Baso % (Auto) 0.1, Neut # (Auto) 14.7 H, Lymph # (Auto) 1.3, Gordon # (Auto) 1.0, Eos # (Auto) 0.0, Baso # (Auto) 0.0, Sodium 136, Potassium 4.4, Chloride 101, Carbon Dioxide 23, Anion Gap 16.4 H, BUN 18 H, Creatinine 0.50 L, Estimated Creat Clear 78, Estimated GFR 123, Est GFR ( Amer) 149, Glucose 137 H, Lactate 1.5, Calcium 9.6, Magnesium 1.5 L, Total Bilirubin 0.9, AST 35, ALT 27, Alkaline Phosphatase 79, C-Reactive Protein 37.6 H, Total Protein 8.1, Albumin 4.7, Globulin 3.4 H, Albumin/Globulin Ratio 1.4, Lipase 18 L, HCV Ab ROCHELLE w/Rflx PCR Qn Negative, HIV Ag/Ab Combo Qual Negative 06/06/25 21:11: Urine Color Yellow, Urine Appearance Clear, Urine pH 6.0, Ur Specific [place] 1.010, Urine Protein Negative, Urine Glucose (UA) Negative, Urine Ketones Negative, Urine Blood Trace-i, Urine Nitrate Negative, Urine Bilirubin Negative, Urine Urobilinogen 0.2, Ur Leukocyte Esterase Negative, Urine RBC None, Urine WBC Occasional, Ur Squamous Epith Cells Occasional, Urine Bacteria None 06/07/25 05:42: WBC 15.4 H, RBC 4.44, Hgb 14.8, Hct 43.1, MCV 97.1, MCH 33.3 H, MCHC 34.3, RDW 13.3, Plt Count 236, MPV 11.3 H, Neut % (Auto) 86.3 H, Lymph % (Auto) 7.8 L, Gordon % (Auto) 5.1, Eos % (Auto) 0.1, Baso % (Auto) 0.1, Neut # ( Auto) 13.3 H, Lymph # (Auto) 1.2, Gordon # (Auto) 0.8, Eos # (Auto) 0.0, Baso # (Auto) 0.0, PT 11.9, INR 1.08, Sodium 139, Potassium 3.9, Chloride 101, Carbon Dioxide 28, Anion Gap 13.9, BUN 12 D, Creatinine 0.50 L, Estimated Creat Clear 86, Estimated GFR 123, Est GFR ( Amer) 149, Glucose 135 H, Calcium 9.0, Magnesium 1.9 D I & O for Labs for Last 24 Hours: Intake & Output 06/04/25 06/05/25 06/06/25 06/07/25 23:59 23:59 23:59 23:59 Intake Total 50 / 290 4590 / 4590 Balance 50 / 290 4590 / 4590 Weight 99.972 kg 99.972 kg Constitutional: Present no acute distress, obese, chronically ill appearing and cooperative Head: Present atraumatic Eyes: Present as per HPI ENT: Present normal exam Neck: Present normal inspection Respiratory: Present prolonged expiratory phase, rhonchi and normal respiratory effort Cardiac: Present Reg Rate and Rhythm and No Murmur GI: Present soft, tenderness (Nonfocal tenderness noted) and hypoactive bowel sounds; Absent distention or rigidity Comments:: S/p laparoscopic appendectomy, dressing scant drainage Rectal (female): Present deferred (female): Present deferred Extremities: Present normal inspection Skin: Present intact and dry; Absent rash Neuro: Present alert, awake, oriented x 3 and moves all extremities Assessment and Plan *Assessment and plan (1) Acute appendicitis: Status: Acute Category: Medical Code(s): K35.80 - Unspecified acute appendicitis (2) Leucocytosis: Status: Acute Qualifiers: Leukocytosis type: unspecified Qualified Code(s): D72.829 - Elevated white blood cell count, unspecified Category: Medical Code(s): D72.829 - Elevated white blood cell count, unspecified (3) Nausea vomiting and diarrhea: Status: Acute Category: Medical Code(s): R11.2 - Nausea with vomiting, unspecified; R19.7 - Diarrhea, unspecified (4) Hypomagnesemia: Status: Acute Category: Medical Code(s): E83.42 - Hypomagnesemia Plan Ms. Ribeiro is a 69-year-old female who presented to the emergency department yesterday with complaints of right lower abdominal pain associated with nausea, vomiting, and diarrhea. She states the pain awoke her early this morning and symptoms progressed throughout the day with worsening RLQ pain. She has a primary medical history of arthritis, anxiety, depression, cholecystectomy, and hip replacement. CT abdomen/pelvis was obtained revealing acute appendicitis. The case was discussed with the on-call general surgeon, Dr. Rayo, who agreed to admit the patient for monitoring and surgical procedure. Initial ED workup was significant for WBC of 17.1, magnesium 1.5, CRP 37, lipase 18. Patient was initiated on Zosyn 4.5 g IV daily. Patient remained hemodynamically stable prior to surgical procedure. Hospital medicine was consulted for admission, agreed to admit the patient. Hospital plan as follows: #Acute necrotizing appendicitis with perforation and established peritonitis #Status post laparoscopic appendectomy #Abdominal pain/nausea/vomiting ?Patient was taken for procedure early this morning, now returning to medical surgical floor post procedure. Procedure went well but was found to have necrotizing appendicitis with perforation. Patient will remain hospitalized overnight for antibiotics, Zosyn 4.5 g every 6 hours IV. And pain control. Morphine 4 mg IV every 4 hours as needed for severe pain, Zofran 4 mg every 6 hours as needed for nausea/vomiting. ?At this time we will continue with only ice chips and sips of water. Will advance diet pending surgical recommendations. Dr. Rayo, general surgery consulted on case. ?Close postop monitoring, currently patient remains hemodynamically stable ?WBC this morning 15.4, no anemia noted. No electrolyte abnormalities, normal kidney function. #Hypomagnesemia, resolved ? Patient initial magnesium on admission 1.5, replace per protocol. Repeat magnesium this morning 1.9. Will continue to monitor. #Anxiety/depression ? Continue duloxetine 30 mg daily. Full code VTE?SCDs Ice chips and sips Ambulate as tolerated with assist
--- OUTSIDE RECORDS SUMMARY | 2025-06-07 14:21 | XMS_ITS | Clinical Summary ---
Author Organization [facility] Address [address] [place] [address] [address] [facility] [address] Phone Care Team Providers Care Manager Wealth Management Name Role Phone Fam Whitehead MD Primary [...] labs. Pt working on wt loss. Sees [employer]. Assessment & Plan (05/09/2023 2:04 PM EDT): Doing well, keep active, walk often, annual labs. Pt working on her weight. And elevated blood sugar in past. Pt being referred to surface water manager for pap. Prior paps all normal Assessment [...] intermittent fasting. Lowering calories, can refer to mobile practice lead Assessment & Plan (04/24/2022 2:24 PM EDT): [...] (06/20/2022): Added automatically from request for surgery [id number] Immunizations Immunization Administration Dates Next Due Influenza [...] POLYPECTOMY ; Surgeon: Cash Baum MD; Location: [facility]; Service: Endoscopy COLONOSCOPY 12/30/2022 N/A COLONOSCOPY with polypectomy and sclerotherapy; Surgeon: Cash Baum MD; Location: [facility] END[facility]; Service: Endoscopy CATARACT REMOVAL 08/07/2022 - 09/03/2022 Right Medical History Medical History Date Comments Chronic pain of right hip 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 No 05/09/2023 Comments Unknown Sex [...] JET SCREEN W CAD BILAT performed at [facility]. July 25, 2022, bilateral MM MAMMO DIGITAL JET SCREEN W CAD BILAT performed at [facility]. There are scattered areas of fibroglandular density. [...] JET SCREEN W CAD BILAT performed at [facility]. July 25, 2022, bilateral MM MAMMO DIGITAL JET SCREEN W CAD BILATperformed at [facility]. There are scattered areas of fibroglandular density. No suspiciousmasses, microcalcifications, or areas of architectural distortion to suggest malignancy. No significant changes when compared with prior studies. IMPRESSION: ASSESSMENT: Negative (BiRads-1) RECOMMENDATION: Routine screening mammogram of both breasts in 1 year. A letter was sent to the patient on this date, with these results. Fam Whitehead MD [facility] ORDERABLES F inal Result * (ABNORMAL) COLOGUARD (06/10/2022 4:00 AM EST) COLOGUARD CLINICAL REPORT Positive( A) Negative Method CRM Comment: POSITIVE TEST RESULT. A positive Cologuard [...] (Luz Haney al, N Engl J Med 2014;370(14):6810-0795.) Cologuard may produce a false negative or false positive result (no colorectal cancer or precancerous polyp present at colonoscopy follow up). A negative Cologuard test result does not guarantee the absence of CRC or advanced adenoma (pre-cancer). The current Cologuard screening interval is every 3 years. ([place] Cancer Society and U.S. Multi-Society Task Force). Cologuard performance data in a 10,000 patient pivotal study using colonoscopy as the reference method can be accessed at the following location: www.[employer]Vascular Therapies/results. Additional description of the Cologuard test process, warnings and precautions can be found at [email or web address].[email or web address]. Stool 06/10/2022 4:00 AM EST 06/11/2022 3:15 PM EST Fam Whitehead MD [employer] - ORDERABLES F inal Result [employer] [address] [place] [address], [facility] Method CRM [id number] [address] from Last 3 Months or Most Recently Relevant to Health Maintenance Insurance PPO Care Teams Manager Wealth Management Relationship Specialty Start Date End Date Fam Whitehead MD PCP - General Family Medicine 06/13/21
--- OUTSIDE RECORDS SUMMARY | 2025-06-07 14:21 | XMS_ITS | Clinical Summary ---
Author Organization [facility] Address [address] [place] [id number] Care Team Providers Care Dietetic Intern Name Role Phone Unavailable Primary Care Provider [...]
--- NOTE | 2025-06-07 16:58 | PC.NURSE ---
pt resting supine in bed at this time. lap appy this shift. lap sites to abdomen remain c/d/i. post op vss. abx and fluids given per sep. complained of pain once and was treated per sep with relief. remains NPO except for ice. no needs at this time. no n/v. call light within reach.
[2025-06-08] VITALS (7 sets, daily range): BP systolic 142–164; BP diastolic 69–92; PULSE 59–116; RESP 16–18; TEMP 36.5–37.7; O2SAT 90–98; BMI 41.2
[2025-06-08] MEDS: 0.9 % SODIUM CHLORIDE 1000ML 1,000 ML 100 ML IV ×2 (00:58→18:03)
[2025-06-08] MEDS: MORPHINE 2MG/ML SYRINGE 4 MG IV ×3 (01:33→11:33)
[2025-06-08] MEDS: PIPERCILLIN/TAZO 3.375 GM in 0.9 % SODIUM CHLORIDE 50 ML IV ×4 (03:51→22:27)
[2025-06-08 06:22] LABS: Hematocrit 40.3 % (37.0-47.0); Hemoglobin 13.9 g/dL (12.2-16.2); Immature Granulocytes % 0.4 %; Mean Corpuscular HGB Conc 34.5 g/dL (31.8-35.4); Mean Corpuscular Hemoglobin 34.2 pg (27.0-31.2); Mean Corpuscular Volume 99.3 fl (81-99); Nucleated Red Blood Cells % 0 %; Platelet Count 185 K/mm3 (142-424); Red Blood Count 4.06 M/mm3 (4.20-5.40); Red Cell Distribution Width-SD 49.4 fL; White Blood Count 7.7 K/mm3 (4.8-10.8)
[2025-06-08 06:48] LABS: Chloride 105 mmol/L (98-107)
[2025-06-08 06:49] LABS: Albumin Level 3.4 g/dl (3.5-5.0); Potassium 3.9 mmoL/L (3.5-5.1); Sodium 141 mmol/L (136-145)
[2025-06-08 06:51] LABS: Alanine Aminotransferase 23 U/L (12-78); Albumin/Globulin Ratio 1.2 (1.1-1.8); Anion Gap 15.9 mEq/L (5-15); Aspartate Amino Transferase 28 U/L (14-36); Blood Urea Nitrogen 15 mg/dl (7-17); Carbon Dioxide 24 mmol/L (22.0-30.0); Creatinine Clearance Estimated 47 mL/min (50-200); Creatinine,Serum 0.60 mg/dl (0.52-1.04); Estimated Glomerular Filt Rate 100 ml/min (>60); GFR (African American) 121 ML/MIN (>60); Globulin 2.8 g/dL (1.3-3.2); Total Protein,Serum 6.2 g/dl (6.3-8.2)
[2025-06-08 06:52] LABS: Alkaline Phosphatase 63 U/L (38-126); Bilirubin,Total 0.7 mg/dl (0.2-1.3); Calcium 7.9 mg/dl (8.4-10.2); Glucose 121 mg/dl (74-100); Magnesium 1.6 mg/dl (1.6-2.3)
--- NOTE | 2025-06-08 08:08 | EXP.SURG.PN ---
Subjective Patient reports: no new complaints Narrative: She states that she is sore . She has ambulated a little in the room . She has not had flatus or a normal bowel movement since her operation; however, she says a little bit of diarrhea leaked out . Exam Data for Last 24 hours Vital signs and Labs for Last 24 Hours: Temp Pulse Resp BP Pulse Ox O2 Del Method O2 Flow Rate 99.5 F 107 H 16 155/92 H 92 L Room Air 5 06/08/25 07:50 06/08/25 07:50 06/08/25 07:50 06/08/25 07:50 06/08/25 07:50 06/08/25 07:50 06/07/25 11:05 Laboratory Results - last 24 hr 06/08/25 06:10: WBC 7.7 D, RBC 4.06 L, Hgb 13.9, Hct 40.3, MCV 99.3 H, MCH 34.2 H, MCHC 34.5, RDW 13.6, Plt Count 185, MPV 11.3 H, Neut % (Auto) 89.0 H, Lymph % (Auto) 6.2 L, [place] % (Auto) 4.0, Eos % (Auto) 0.0 L, Baso % (Auto) 0.4, Neut # (Auto) 6.9, Lymph # (Auto) 0.5 L, [place]ome # (Auto) 0.3, Eos # (Auto) 0.0, Baso # (Auto) 0.0, Sodium 141, Potassium 3.9, Chloride 105, Carbon Dioxide 24, Anion Gap 15.9 H, BUN 15, Creatinine 0.60, Estimated Creat Clear 47, Estimated GFR 100, Est GFR ( Amer) 121, Glucose 121 H, Calcium 7.9 L, Magnesium 1.6 D, Total Bilirubin 0.7, AST 28, ALT 23, Alkaline Phosphatase 63, Total Protein 6.2 L, Albumin 3.4 L D, Globulin 2.8, Albumin/Globulin Ratio 1.2 I & O for Last 24 hours: Intake & Output 06/05/25 06/06/25 06/07/25 06/08/25 11:59 11:59 11:59 11:59 Intake Total 4690 / 4690 1270 / 1270 Output Total 0 / 0 Balance 4690 / 4690 1270 / 1270 Weight 220 lb 6.408 oz 241 lb 8 oz Constitutional Constitutional: no acute distress *Routine Respiratory Exam Respiratory: Absent respiratory distress *Routine Cardiovascular Exam Cardiovascular: Present tachycardia *Routine Abdominal Exam Abdominal: Present soft Comments: Dressings intact. No spreading cellulitis. Progress Note: A&P Assessment and plan (1) Acute perforated appendicitis: Status: Acute Assessment and plan: Overall, doing well postoperative day 1 status post laparoscopic appendectomy for acute necrotizing appendicitis with perforation and established peritonitis (Dr. Rayo) Continue IV antibiotics for now Increase ambulation Clear liquid diet
--- NOTE | 2025-06-08 08:38 | HMH.PHAAMS2 ---
- Antimicrobial Stewardship Review culture & sensitivity review Stewardship interventions: culture & sensitivity review (APPENDICITIS, ON ZOSYN, WBC DECREASED FROM 17.1K TO 7.7K AFTER ADMISSION, NO CX, APPENDECTOMY 06/07/25.)
[2025-06-08 09:25] LABS: RBC Morphology Normal; Total Cells Counted 100
--- NOTE | 2025-06-08 09:55 | P.PN_ITS ---
<Statement entered by Marcos Holborok MD - 06/14/25 15:53> Agree with plan of care as outlined by the FOOD AND BEVERAGE CONTROLLER. Subjective *Date: 06/08/25 *Time: 09:55 Interval history: Patient is doing well this morning, advancing to clear liquids for breakfast. Denies nausea or vomiting, endorses moderate to severe pain worse with movement. Will transition today from IV pain medication to oral, surgery consulting recommends continued hospital admission with IV antibiotics. Encouraged patient to ambulate. Medical Exam Vital signs and Labs for Last 24 Hours: Vital Signs Temp Pulse Pulse Resp BP BP Pulse Ox 06/08/25 07:50 99.5 F 107 H 16 155/92 H 92 L 06/08/25 06:37 06/08/25 05:00 06/08/25 04:00 98.2 F 114 H 16 157/86 H 91 L 06/08/25 03:00 06/08/25 01:00 06/08/25 00:00 98.4 F 107 H 16 147/79 H 93 L 06/07/25 23:00 06/07/25 21:00 06/07/25 20:00 06/07/25 19:52 99.2 F 107 H 18 160/97 H 94 L 06/07/25 18:50 06/07/25 17:00 06/07/25 16:00 99.0 F 105 H 18 131/75 06/07/25 15:00 06/07/25 14:00 98 H 16 142/80 H 95 06/07/25 13:30 102 H 16 127/80 96 06/07/25 13:00 103 H 14 126/73 93 L 06/07/25 13:00 06/07/25 12:30 104 H 16 133/82 94 L 06/07/25 12:00 100 H 16 138/78 93 L 06/07/25 11:45 100 H 17 137/90 94 L 06/07/25 11:30 100 H 18 144/93 H 96 06/07/25 11:15 98.3 F 101 H 16 143/88 H 93 L 06/07/25 11:05 97 H 18 150/75 H 98 06/07/25 10:55 102 H 18 114/78 97 06/07/25 10:45 106 H 18 104/58 L 97 06/07/25 10:38 97.7 F 114 H 18 157/63 H 06/07/25 10:35 97.7 F 115 H 18 157/63 H 91 L O2 Del Method O2 Flow Rate 06/08/25 07:50 Room Air 06/08/25 06:37 Room Air 06/08/25 05:00 Room Air 06/08/25 04:00 Room Air 06/08/25 03:00 Room Air 06/08/25 01:00 Room Air 06/08/25 00:00 Room Air 06/07/25 23:00 Room Air 06/07/25 21:00 Room Air 06/07/25 20:00 Room Air 06/07/25 19:52 Room Air 06/07/25 18:50 Room Air 06/07/25 17:00 Room Air 06/07/25 16:00 Nasal Cannula 06/07/25 15:00 Room Air 06/07/25 14:00 Room Air 06/07/25 13:30 Room Air 06/07/25 13:00 Room Air 06/07/25 13:00 Room Air 06/07/25 12:30 Room Air 06/07/25 12:00 Room Air 06/07/25 11:45 Room Air 06/07/25 11:30 Room Air 06/07/25 11:15 Room Air 06/07/25 11:05 Nasal Cannula 5 06/07/25 10:55 Nasal Cannula 5 06/07/25 10:45 Nasal Cannula 5 06/07/25 10:38 06/07/25 10:35 Nasal Cannula 5 Intake and Output 06/07/25 06/08/25 06/08/25 23:59 07:59 15:59 Intake Total 1100 / 5860 170 / 170 Output Total 0 / 0 0 / 0 Balance 1100 / 5860 170 / 170 Intake: Intake, Oral Amount 120 / 120 Intake, Total IV Amount 1100 / 3300 50 / 50 0.9 % Sodium Chloride 1000ML 1, 1000 / 2000 000 ml @ 100 mls/hr IV .Q10H [facility] Rx#:[id number] Pipercillin/Tazo 3.375 gm In 0. 100 / 200 50 / 50 9 % Sodium Chloride 50 ml @ 100 mls/hr IV Q6H [facility] Rx#:[id number] Output: Output, Urine Amount 0 / 0 0 / 0 Other: Number of Unmeasured Voids 1 1 Number of Bowel Movements 1 Weight 109.543 kg Patient Weight 06/08/25 23:59 Weight 109.543 kg Laboratory Results - last 24 hr 06/08/25 06:10: WBC 7.7 D, RBC 4.06 L, Hgb 13.9, Hct 40.3, MCV 99.3 H, MCH 34.2 H, MCHC 34.5, RDW 13.6, Plt Count 185, MPV 11.3 H, Neut % (Auto) 89.0 H, Lymph % (Auto) 6.2 L, [place] % (Auto) 4.0, Eos % (Auto) 0.0 L, Baso % (Auto) 0.4, Neut # (Auto) 6.9, Lymph # (Auto) 0.5 L, [place] # (Auto) 0.3, Eos # (Auto) 0.0, Baso # (Auto) 0.0, Total Counted 100, Neutrophils % (Manual) 80 H, Lymphocytes % (Manual) 17, Monocytes % (Manual) 3, Platelet Estimate Normal, RBC Morphology Normal, Sodium 141, Potassium 3.9, Chloride 105, Carbon Dioxide 24, Anion Gap 15.9 H, BUN 15, Creatinine 0.60, Estimated Creat Clear 47, Estimated GFR 100, Est GFR ( Amer) 121, Glucose 121 H, Calcium 7.9 L, Magnesium 1.6 D, Total Bilirubin 0.7, AST 28, ALT 23, Alkaline Phosphatase 63, Total Protein 6.2 L, Albumin 3.4 L D, Globulin 2.8, Albumin/Globulin Ratio 1.2 I & O for Labs for Last 24 Hours: Intake & Output 06/05/25 06/06/25 06/07/25 06/08/25 23:59 23:59 23:59 23:59 Intake Total 50 / 290 5740 / 5860 170 / 170 Output Total 0 / 0 0 / 0 Balance 50 / 290 5740 / 5860 170 / 170 Weight 99.972 kg 99.972 kg 109.543 kg Constitutional: Present no acute distress, obese, chronically ill appearing and cooperative Head: Present atraumatic Eyes: Present as per HPI ENT: Present normal exam Neck: Present normal inspection Respiratory: Present prolonged expiratory phase, rhonchi and normal respiratory effort Cardiac: Present Reg Rate and Rhythm and No Murmur GI: Present soft, tenderness (Nonfocal tenderness noted) and hypoactive bowel sounds; Absent distention or rigidity Comments:: S/p laparoscopic appendectomy, dressing scant drainage Rectal (female): Present deferred (female): Present deferred Extremities: Present normal inspection Skin: Present intact and dry; Absent rash Neuro: Present alert, awake, oriented x 3 and moves all extremities Assessment and Plan *Assessment and plan (1) Acute perforated appendicitis: Status: Acute Category: Medical Code(s): K35.32 - Acute appendicitis with perforation, localized peritonitis, and gangrene, without abscess (2) S/P laparoscopic appendectomy: Status: Acute Category: Surgical Code(s): Z90.49 - Acquired absence of other specified parts of digestive tract (3) Acute appendicitis: Status: Deleted Category: Medical Code(s): K35.80 - Unspecified acute appendicitis (4) Leucocytosis: Status: Acute Qualifiers: Leukocytosis type: unspecified Qualified Code(s): D72.829 - Elevated white blood cell count, unspecified Category: Medical Code(s): D72.829 - Elevated white blood cell count, unspecified (5) Nausea vomiting and diarrhea: Status: Acute Category: Medical Code(s): R11.2 - Nausea with vomiting, unspecified; R19.7 - Diarrhea, unspecified (6) Hypomagnesemia: Status: Acute Category: Medical Code(s): E83.42 - Hypomagnesemia Plan Ms. Ribeiro is a 69-year-old female who presented to the emergency department Friday with complaints of right lower abdominal pain associated with nausea, vomiting, and diarrhea. She states the pain awoke her early that morning and symptoms progressed throughout the day with worsening RLQ pain. She has a [facility] medical history of arthritis, anxiety, depression, cholecystectomy, and hip replacement. CT abdomen/pelvis was obtained revealing acute appendicitis. The case was discussed with the on-call general surgeon, Dr. Rayo, who agreed to admit the patient for monitoring and surgical procedure. Initial ED workup was significant for WBC of 17.1, magnesium 1.5, CRP 37, lipase 18. Patient was initiated on Zosyn 4.5 g IV daily. Patient remained hemodynamically stable prior to surgical procedure. Hospital medicine was consulted for admission, agreed to admit the patient. Hospital plan as follows: #Acute necrotizing appendicitis with perforation and established peritonitis #Status post laparoscopic appendectomy #Abdominal pain/nausea/vomiting ?Patient was taken for procedure early yesterday morning. Procedure went well but was found to have necrotizing appendicitis with perforation. Patient will remain hospitalized overnight for antibiotics, Zosyn 4.5 g every 6 hours IV and pain control. Will advance diet to clear liquids and possibly full liquids later today, transitioning pain medication from morphine IV to Percocet 1?2 tab every 6 hours as needed for moderate to severe pain. Zofran 4 mg every 6 hours as needed for nausea/vomiting. ?Close postop monitoring, currently patient remains hemodynamically stable ?WBC significantly improved to 7.7 this morning, no anemia noted. No electrolyte abnormalities, normal kidney function. Continuing Zosyn every 6 hours IV at this time. #Hypomagnesemia, resolved ? Magnesium 1.6 this morning, replacing per protocol. #Anxiety/depression ? Continue duloxetine 30 mg daily. Full code VTE?SCDs Ice chips and sips Ambulate as tolerated with assist
[2025-06-08] MEDS: POLYETHYLENE GLYCOL 3350 17 GM PACKET PO (11:26)
[2025-06-08] MEDS: SENNOSIDES 8.6MG/DOCUSATE 50MG TABLET 1 TAB PO (11:26)
--- NOTE | 2025-06-08 12:52 | EXP.ANES.II ---
[facility] Anesthesia Record Part II Anesthesia Record Part II Discharge Time: 11:05 Destination: Medical Surgical Department PACU nurse assessment reviewed?: Yes Patient Condition:: Good Anesthesia Complications:: None Swallowing reflex intact?: Yes Airway Patency: Patent Cyanosis?: No Blood Pressure: 150/75 SaO2: 98 Respiratory Rate: 18 Pulse Rate: 97 Temperature: 97.7 F Mental Status: Alert & Oriented Pain level:: 0 Nausea and/or vomitting:: None Intake, IV Amount: 0 Hydration: Adequate
[2025-06-08] MEDS: OXYCODONE 5MG W/APAP 325MG TABLET 2 EACH PO (17:53)
--- NOTE | 2025-06-08 18:15 | PC.NURSE ---
patient has complained of lower abdominal pain several times during the shift, treated per SEP. Patient received IV dose of morphine this AM and has since transitioned to PO pain meds. Patient ambulated in the hallway once and around the room throughout the shift. Bowel regimen started. VSS. call light in reach.
[2025-06-09] VITALS: BP 128/87; PULSE 110; RESP 16; TEMP 37.1; O2SAT 92
[2025-06-09] MEDS: PIPERCILLIN/TAZO 3.375 GM in 0.9 % SODIUM CHLORIDE 50 ML IV ×4 (03:04→23:08)
[2025-06-09 04:00] VITALS: BP 132/67; PULSE 60; RESP 16; TEMP 36.7; O2SAT 93; BMI 39.9
--- NOTE | 2025-06-09 04:15 | PC.NURSE ---
Addendum entered by Louise Olson RN 06/09/25 06:57: Patient stated that she did have a couple bowel movements this morning. She stated that her stool appearance was like small brown alina. Original Note: Patient is alert and oriented x4. She was observed to be resting in bed with eyes closed, respirations even and unlabored on room air, and no apparent distress throughout the majority of the night. Patient has frequently ambulated to/from the bathroom independently (standby assist to unhook her from fluid infusions) to urinate and attempt defecation. She reports passing lots of gas but has not had a bowel movement yet during this shift. Patient reported having severe, aching abdominal pain of which Percocet was given per MAR for relief. No complaints of nausea. Scheduled medications administered per MAR. Normal saline infusing at 100 mL/hr. Physical assessment was performed (see nursing shift biophysical intervention) as appropriately for this shift. Laparoscopic sites were assessed; dressings remain clean, dry, and intact. Abdomen tender with palpation. Patient refused to wear SCDs this shift. Clear liquid diet. At this time, the patient remains resting in bed with no new needs vocalized. Call light within reach.
[2025-06-09 06:23] LABS: Hematocrit 37.4 % (37.0-47.0); Hemoglobin 12.7 g/dL (12.2-16.2); Immature Granulocytes % 0.5 %; Mean Corpuscular HGB Conc 34.0 g/dL (31.8-35.4); Mean Corpuscular Hemoglobin 33.8 pg (27.0-31.2); Mean Corpuscular Volume 99.5 fl (81-99); Nucleated Red Blood Cells % 0 %; Platelet Count 178 K/mm3 (142-424); Red Blood Count 3.76 M/mm3 (4.20-5.40); Red Cell Distribution Width-SD 49.7 fL; White Blood Count 8.6 K/mm3 (4.8-10.8)
[2025-06-09] MEDS: OXYCODONE 5MG W/APAP 325MG TABLET 2 EACH PO ×4 (06:53→19:06)
--- NOTE | 2025-06-09 07:51 | EXP.SURG.PN ---
Subjective Narrative: Patient states that she is slowly feeling better. Not much appetite. Has had loose stools. Tolerating clear liquids. Exam Data for Last 24 hours Vital signs and Labs for Last 24 Hours: Temp Pulse Resp BP Pulse Ox O2 Del Method O2 Flow Rate 98.1 F 60 16 132/67 93 L Room Air 5 06/09/25 04:00 06/09/25 04:00 06/09/25 04:00 06/09/25 04:00 06/09/25 04:00 06/09/25 06:55 06/07/25 11:05 Laboratory Results - last 24 hr 06/08/25 06:10: Total Counted 100, Neutrophils % (Manual) 80 H, Lymphocytes % (Manual) 17, Monocytes % (Manual) 3, Platelet Estimate Normal, RBC Morphology Normal 06/09/25 05:24: WBC 8.6, RBC 3.76 L, Hgb 12.7, Hct 37.4, MCV 99.5 H, MCH 33.8 H, MCHC 34.0, RDW 13.5, Plt Count 178, MPV 12.1 H, Neut % (Auto) 87.4 H, Lymph % (Auto) 6.4 L, [place] % (Auto) 5.1, Eos % (Auto) 0.5, Baso % (Auto) 0.1, Neut # (Auto) 7.5, Lymph # (Auto) 0.6 L, [place] # (Auto) 0.4, Eos # (Auto) 0.0, Baso # (Auto) 0.0 I & O for Last 24 hours: Intake & Output 06/06/25 06/07/25 06/08/25 06/09/25 11:59 11:59 11:59 11:59 Intake Total 4690 / 4690 2270 / 2270 890 / 890 Output Total 0 / 0 Balance 4690 / 4690 2269 / 2269 890 / 890 Weight 220 lb 6.408 oz 241 lb 8 oz 233 lb 9.6 oz *Routine Abdominal Exam Abdominal: Present soft Comments: Some bruising around the trocar site Progress Note: A&P Assessment and plan (1) Acute perforated appendicitis: Status: Acute Assessment and plan: Advance to full liquid diet. Continue IV antibiotics. (2) S/P laparoscopic appendectomy: Status: Acute (3) Acute appendicitis: Status: Deleted (4) Leucocytosis: Status: Acute (5) Nausea vomiting and diarrhea: Status: Acute (6) Hypomagnesemia: Status: Acute
[2025-06-09 08:00] VITALS: BP 121/87; PULSE 108; RESP 18; TEMP 37; O2SAT 92
--- NOTE | 2025-06-09 09:02 | HMH.PHAAMS2 ---
- Antimicrobial Stewardship Review 48 hour timeout review Stewardship interventions: 48 hour timeout review, reviewed - no change Comments: PERFORATED APPENDIX, ZOSYN EMPIRICALLY POST-OP WILL DISCUSS DISCONTINUATION ON ROUNDS
--- NOTE | 2025-06-09 10:53 | P.PN_ITS ---
<Statement entered by Marcos Holbrook MD - 06/14/25 15:52> Agree with plan of care as outlined by the SOFTWARE ENGINEER. Subjective *Date: 06/09/25 *Time: 10:53 Interval history: Patient doing well this morning, ambulating around the room. States she did well overnight, intermittent abdominal pain. Patient takes Barclay every 4 hours as needed at home for chronic knee pain, holding Barclay at this time due to Percocet use for postsurgical pain. Advancing patient's diet, continuing IV antibiotics, anticipate discharge home tomorrow. Medical Exam Vital signs and Labs for Last 24 Hours: Vital Signs Temp Pulse Pulse Resp BP Pulse Ox O2 Del Method 06/09/25 08:00 98.6 F 108 H 18 121/87 92 L Room Air 06/09/25 06:55 Room Air 06/09/25 05:00 Room Air 06/09/25 04:00 98.1 F 60 16 132/67 93 L Room Air 06/09/25 03:00 Room Air 06/09/25 01:00 Room Air 06/09/25 00:00 98.7 F 110 H 16 128/87 92 L Room Air 06/08/25 23:00 Room Air 06/08/25 21:00 Room Air 06/08/25 20:00 Room Air 06/08/25 20:00 98.2 F 59 L 16 142/69 H 94 L Room Air 06/08/25 18:11 Room Air 06/08/25 17:00 Room Air 06/08/25 16:00 98.7 F 101 H 18 164/76 H 90 L Room Air 06/08/25 14:11 Room Air 06/08/25 13:00 Room Air 06/08/25 12:58 18 06/08/25 12:00 99.9 F H 116 H 16 159/80 H 91 L Room Air 06/08/25 11:00 Room Air Intake and Output 06/08/25 06/09/25 06/09/25 23:59 07:59 15:59 Intake Total 2009 350 / 620 270 / 620 Output Total 0 / 1 0 / 0 0 / 0 Balance 2008 350 / 620 270 / 620 Intake: Intake, Oral Amount 270 / 810 300 / 570 270 / 570 Intake, Total IV Amount 100 / 1200 50 / 50 Pipercillin/Tazo 3.375 gm In 0. 100 / 200 50 / 50 9 % Sodium Chloride 50 ml @ 100 mls/hr IV Q6H [facility] Rx#:[id number] Output: Output, Urine Amount 0 / 1 0 / 0 0 / 0 Other: Number of Unmeasured Voids 1 1 1 Number of Bowel Movements 2 1 Weight 105.959 kg Patient Weight 06/09/25 23:59 Weight 105.959 kg Laboratory Results - last 24 hr 06/09/25 05:24: WBC 8.6, RBC 3.76 L, Hgb 12.7, Hct 37.4, MCV 99.5 H, MCH 33.8 H, MCHC 34.0, RDW 13.5, Plt Count 178, MPV 12.1 H, Neut % (Auto) 87.4 H, Lymph % (Auto) 6.4 L, [place] % (Auto) 5.1, Eos % (Auto) 0.5, Baso % (Auto) 0.1, Neut # (Auto) 7.5, Lymph # (Auto) 0.6 L, [place] # (Auto) 0.4, Eos # (Auto) 0.0, Baso # (Auto) 0.0 I & O for Labs for Last 24 Hours: Intake & Output 06/06/25 06/07/25 06/08/25 06/09/25 23:59 23:59 23:59 23:59 Intake Total 50 / 290 5740 / 5860 1709 620 / 620 Output Total 0 / 0 1 / 1 0 / 0 Balance 50 / 290 5740 / 5860 1708 620 / 620 Weight 99.972 kg 99.972 kg 109.543 kg 105.959 kg Constitutional: Present no acute distress, obese, chronically ill appearing and cooperative Head: Present atraumatic Eyes: Present as per HPI ENT: Present normal exam Neck: Present normal inspection Respiratory: Present prolonged expiratory phase, rhonchi and normal respiratory effort Cardiac: Present Reg Rate and Rhythm and No Murmur GI: Present soft, tenderness (Nonfocal tenderness noted) and hypoactive bowel sounds; Absent distention or rigidity Comments:: S/p laparoscopic appendectomy, dressing scant drainage Rectal (female): Present deferred (female): Present deferred Extremities: Present normal inspection Skin: Present intact and dry; Absent rash Neuro: Present alert, awake, oriented x 3 and moves all extremities Assessment and Plan *Assessment and plan (1) Acute perforated appendicitis: Status: Acute Category: Medical Code(s): K35.32 - Acute appendicitis with perforation, localized peritonitis, and gangren e, without abscess (2) S/P laparoscopic appendectomy: Status: Acute Category: Surgical Code(s): Z90.49 - Acquired absence of other specified parts of digestive tract (3) Acute appendicitis: Status: Deleted Category: Medical Code(s): K35.80 - Unspecified acute appendicitis (4) Leucocytosis: Status: Acute Qualifiers: Leukocytosis type: unspecified Qualified Code(s): D72.829 - Elevated white blood cell count, unspecified Category: Medical Code(s): D72.829 - Elevated white blood cell count, unspecified (5) Nausea vomiting and diarrhea: Status: Acute Category: Medical Code(s): R11.2 - Nausea with vomiting, unspecified; R19.7 - Diarrhea, unspecified (6) Hypomagnesemia: Status: Acute Category: Medical Code(s): E83.42 - Hypomagnesemia Plan Ms. Ribeiro is a 69-year-old female who presented to the emergency department Friday with complaints of right lower abdominal pain associated with nausea, vomiting, and diarrhea. She states the pain awoke her early that morning and symptoms progressed throughout the day with worsening RLQ pain. She has a primary medical history of arthritis, anxiety, depression, cholecystectomy, and hip replacement. CT abdomen/pelvis was obtained revealing acute appendicitis. The case was discussed with the on-call general surgeon, Dr. Rayo, who agreed to admit the patient for monitoring and surgical procedure. Initial ED workup was significant for WBC of 17.1, magnesium 1.5, CRP 37, lipase 18. Patient was initiated on Zosyn 4.5 g IV daily. Patient remained hemodynamically stable prior to surgical procedure. Hospital medicine was consulted for admission, agreed to admit the patient. Hospital plan as follows: #Acute necrotizing appendicitis with perforation and established peritonitis #Status post laparoscopic appendectomy #Abdominal pain/nausea/vomiting ?Patient ambulating independently, anticipate discharge home tomorrow morning. ?Patient was taken for procedure early Friday. Procedure went well but was found to have necrotizing appendicitis with perforation. We will continue antibiotics, Zosyn 4.5 g every 6 hours IV and pain control. Patient tolerated clear liquids yesterday and this morning, will transition to full liquid diet today. Transitioned yesterday from IV morphine to Percocet 1?2 tab every 6 hours as needed for severe pain. Zofran 4 mg every 6 hours as needed for nausea/vomiting. ?Close postop monitoring, currently patient remains hemodynamically stable ?WBC remains stable at 8.6. This morning, no anemia noted. No electrolyte abnormalities, normal kidney function. Continuing Zosyn every 6 hours IV at this time. #Hypomagnesemia, resolved ? Magnesium 1.6 this morning, replacing per protocol. #Anxiety/depression ? Continue duloxetine 30 mg daily. Full code VTE?SCDs Full liquid diet Ambulate as tolerated with assist
[2025-06-09 12:00] VITALS: BP 178/71; PULSE 115; RESP 18; TEMP 37; O2SAT 93
--- NOTE | 2025-06-09 15:30 | PC.NURSE ---
patient is a/ox4, remains on room air. has ambulated in the hallway several times this shift independently. tolerating full liquid diet. has c/o ABD pain, treated per MAR. receiving IV ABX, fluids d/c per MD. no c/o nausea. patient reports having loose BMs,refused miralax and senokot. ABD lap sites C/D/I. call light within reach, no further requests at this time.
[2025-06-09 16:00] VITALS: BP 172/96; PULSE 18; RESP 18; TEMP 36.7; O2SAT 95
[2025-06-09 20:00] VITALS: BP 173/112; PULSE 99; RESP 14; TEMP 36.9; O2SAT 93
[2025-06-10] VITALS: BP 161/90; PULSE 95; RESP 12; TEMP 36.7; O2SAT 93
[2025-06-10] MEDS: OXYCODONE 5MG W/APAP 325MG TABLET 2 EACH PO ×2 (01:29→07:37)
[2025-06-10] MEDS: OXYCODONE 5MG W/APAP 325MG TABLET 1 EACH PO (01:29)
[2025-06-10 04:00] VITALS: BP 148/63; PULSE 81; RESP 15; TEMP 36.8; O2SAT 93; BMI 39.8
[2025-06-10] MEDS: PIPERCILLIN/TAZO 3.375 GM in 0.9 % SODIUM CHLORIDE 50 ML IV (04:13)
[2025-06-10 06:46] LABS: Hematocrit 38.6 % (37.0-47.0); Hemoglobin 12.8 g/dL (12.2-16.2); Immature Granulocytes % 0.5 %; Mean Corpuscular HGB Conc 33.2 g/dL (31.8-35.4); Mean Corpuscular Hemoglobin 32.7 pg (27.0-31.2); Mean Corpuscular Volume 98.5 fl (81-99); Nucleated Red Blood Cells % 0 %; Platelet Count 208 K/mm3 (142-424); Red Blood Count 3.92 M/mm3 (4.20-5.40); Red Cell Distribution Width-SD 49.3 fL; White Blood Count 8.0 K/mm3 (4.8-10.8)
--- NOTE | 2025-06-10 06:57 | EXP.SURG.PN ---
Subjective Narrative: Patient doing well. Anxious to go home. No complaints other than some minimal abdominal soreness. Exam Data for Last 24 hours Vital signs and Labs for Last 24 Hours: Temp Pulse Resp BP Pulse Ox O2 Del Method O2 Flow Rate 98.3 F 81 15 148/63 H 93 L Room Air 5 06/10/25 04:00 06/10/25 04:00 06/10/25 04:00 06/10/25 04:00 06/10/25 04:00 06/10/25 04:00 06/07/25 11:05 I & O for Last 24 hours: Intake & Output 06/07/25 06/08/25 06/09/25 06/10/25 11:59 11:59 11:59 11:59 Intake Total 4690 / 4690 2270 / 2270 1159 Output Total 1 / 1 0 / 0 0 / 0 Balance 4690 / 4690 2269 / 2269 1159 Weight 220 lb 6.408 oz 241 lb 8 oz 233 lb 9.6 oz 233 lb 7.512 oz *Routine Abdominal Exam Abdominal: Present soft Comments: Minor bruising Progress Note: A&P Assessment and plan (1) Acute perforated appendicitis: Status: Acute Assessment and plan: Discharge home on several days oral antibiotics with close follow-up prior to her traveling out of [facility]. (2) S/P laparoscopic appendectomy: Status: Acute (3) Acute appendicitis: Status: Deleted (4) Leucocytosis: Status: Acute (5) Nausea vomiting and diarrhea: Status: Acute (6) Hypomagnesemia: Status: Acute
[2025-06-10 06:58] LABS: Albumin Level 3.2 g/dl (3.5-5.0); Chloride 103 mmol/L (98-107); Potassium 3.3 mmoL/L (3.5-5.1); Sodium 137 mmol/L (136-145)
[2025-06-10 07:00] LABS: Blood Urea Nitrogen 10 mg/dl (7-17); Creatinine Clearance Estimated 91 mL/min (50-200); Creatinine,Serum 0.60 mg/dl (0.52-1.04); Estimated Glomerular Filt Rate 100 ml/min (>60); GFR (African American) 121 ML/MIN (>60)
[2025-06-10 07:01] LABS: Alanine Aminotransferase 22 U/L (12-78); Albumin/Globulin Ratio 1.0 (1.1-1.8); Alkaline Phosphatase 78 U/L (38-126); Anion Gap 10.3 mEq/L (5-15); Aspartate Amino Transferase 29 U/L (14-36); Bilirubin,Total 0.6 mg/dl (0.2-1.3); Calcium 8.1 mg/dl (8.4-10.2); Carbon Dioxide 27 mmol/L (22.0-30.0); Globulin 3.1 g/dL (1.3-3.2); Glucose 98 mg/dl (74-100); Total Protein,Serum 6.3 g/dl (6.3-8.2)
[2025-06-10 08:00] VITALS: BP 175/95; PULSE 103; RESP 20; TEMP 37.1; O2SAT 94
--- NOTE | 2025-06-10 08:06 | HMH.PHAAMS2 ---
- Antimicrobial Stewardship Review 48 hour timeout review Stewardship interventions: 48 hour timeout review, culture & sensitivity review Comments: PERFORATED APPENDIX, ZOSYN EMPIRICALLY POST-OP, PATIENT LIKELY TO D/C TODAY WITH ORAL ANTIBIOTICS. NO SPECIMAN AND PATIENT AFEBRILE OVER 24 HR.
[2025-06-10] MEDS: SENNOSIDES 8.6MG/DOCUSATE 50MG TABLET 1 TAB PO (09:01)
[2025-06-10] MEDS: POTASSIUM CHLORIDE 20MEQ TAB 40 MEQ PO (09:02)
--- NOTE | 2025-06-10 09:11 | P.DS_ITS ---
<Statement entered by Marcos Holbrook MD - 06/14/25 15:57> Agree with plan of care as outlined by the REFUSE DRIVER. General Admission date:: 06/06/25 Discharge date: 06/10/25 HPI HPI HPI: Patient is a 69-year-old female from [facility] with past medical history significant for osteoarthritis, anxiety depression, cholecystectomy, hip replacement. She developed onset of nausea, vomiting, and diarrhea in the morning of 06/06/2025. Symptoms progressed throughout the day with development of abdominal pain localizing to the right lower quadrant becoming more severe. She presented to the emergency department at [facility] in the evening of 06/06/2025. Upon presentation to the emergency department patient was somewhat tachycardic and hypertensive. She had mild leukocytosis of 11,700. CT scan revealed findings of nonperforated appendicitis. Surgery was contacted. Plan was made for admission for inpatient appendectomy. Hospital Course Hospital Course Hospital Course: Ms. Ribeiro is a 69-year-old female who presented to the emergency department Friday with complaints of right lower abdominal pain associated with nausea, vomiting, and diarrhea. She states the pain awoke her early that morning and symptoms progressed throughout the day with worsening RLQ pain. She has a primary medical history of arthritis, anxiety, depression, cholecystectomy, and hip replacement. CT abdomen/pelvis was obtained revealing acute appendicitis. The case was discussed with the on-call general surgeon, Dr. Rayo, who agreed to admit the patient for monitoring and surgical procedure. Initial ED workup was significant for WBC of 17.1, magnesium 1.5, CRP 37, lipase 18. Patient was initiated on Zosyn 4.5 g IV daily. Patient remained hemodynamically stable prior to surgical procedure. Hospital medicine was consulted for admission, agreed to admit the patient. Hospital course was as follows: #Acute necrotizing appendicitis with perforation and established peritonitis #Status post laparoscopic appendectomy #Abdominal pain/nausea/vomiting, resolved ? Patient ambulating independently, minimal pain. Tolerating p.o. diet without issues. Safe disposition to discharge home today, will follow-up with Dr. Rayo on Friday due to living out of town. ? Patient was taken for procedure early Friday morning. Procedure went well but was found to have necrotizing appendicitis with perforation. Patient received Zosyn 4.5 g every 6 hours IV during admission, will transition to Augmentin 1 tab twice daily x 5 days at discharge. Patient was also discharged home with Wells 10/325 mg every 6 hours as needed for abdominal pain. She takes Wells at home for her knee pain, discussed only taking Wells 5 or Wells 10 but not both. ? Patient remained hemodynamically stable during admission. ? Lab work day of discharge very reassuring, no leukocytosis, no anemia, normal kidney function, potassium 3.3?discussed OTC replacement of potassium. #Hypomagnesemia, resolved ? Magnesium 1.6 this morning, replaced per protocol. #Anxiety/depression ? Continue duloxetine 30 mg daily. Total time spent on discharge 32 minutes in counseling, documentation, chart review, and direct care with patient. Exam Data for Last 24 hours Vital signs and Labs for Last 24 Hours: Temp Pulse Resp BP Pulse Ox O2 Del Method O2 Flow Rate 98.8 F 103 H 20 175/95 H 94 L Room Air 5 06/10/25 08:00 06/10/25 08:00 06/10/25 08:00 06/10/25 08:00 06/10/25 08:00 06/10/25 08:00 06/07/25 11:05 Laboratory Results - last 24 hr 06/10/25 05:29: WBC 8.0, RBC 3.92 L, Hgb 12.8, Hct 38.6, MCV 98.5, MCH 32.7 H, MCHC 33.2, RDW 13.5, Plt Count 208, MPV 11.7 H, Neut % (Auto) 80.2 H, Lymph % (Auto) 10.6, [place] % (Auto) 6.9, Eos % (Auto) 1.6, Baso % (Auto) 0.2, Neut # (Auto) 6.4, Lymph # (Auto) 0.9, [place] # (Auto) 0.6, Eos # (Auto) 0.1, Baso # (Auto) 0.0, Sodium 137, Potassium 3.3 L, Chloride 103, Carbon Dioxide 27, Anion Gap 10.3, BUN 10 D, Creatinine 0.60, Estimated Creat Clear 91, Estimated GFR 100, Est GFR ( Amer) 121, Glucose 98, Calcium 8.1 L, Total Bilirubin 0.6, AST 29, ALT 22, Alkaline Phosphatase 78, Total Protein 6.3, Albumin 3.2 L, Globulin 3.1, Albumin/Globulin Ratio 1.0 L I & O for Last 24 hours: Intake & Output 06/07/25 06/08/25 06/09/25 06/10/25 23:59 23:59 23:59 23:59 Intake Total 5740 / 5860 17090 / 2650 530 / 530 Output Total 0 / 0 1 / 1 0 / 0 0 / 0 Balance 5740 / 5860 1708 / 0 530 / 530 Weight 99.972 kg 109.543 kg 105.959 kg 105.9 kg Constitutional Constitutional: no acute distress, obese, chronically ill appearing and cooperative *Routine HEENT Exam Head: Present normocephalic Eye: Present EOMI and PERRL ENT: Present mucous membranes moist *Routine Neck Exam Neck: Present supple; Absent lymphadenopathy *Routine Respiratory Exam Respiratory: Present CTA bilaterally and normal respiratory effort; Absent wheezes or crackles *Routine Cardiovascular Exam Cardiovascular: Present RRR, Normal S1 and Normal S2; Absent murmur *Routine Abdominal Exam Abdominal: Present soft, normoactive bowel sounds, tenderness (Nonfocal tenderness with movement) and surgical scars (Surgical trocar incisions with slight bruising noted on abdomen); Absent distended *Routine Rectal Exam Patient deferred: visual exam *Routine Exam Patient deferred: external exam *Routine Extremities Exam Extremities: Present full ROM; Absent cyanosis, clubbing or edema *Routine Skin Exam Skin: Present intact, dry and warm; Absent rash *Routine Neurological Exam Neurological: Present alert, oriented X3, vision grossly intact, hearing grossly intact and normal speech Results Data Completed and Pending Labs on day of discharge: Labs from last 24 hours 06/10/25 05:29 WBC 8.0 RBC 3.92 L Hgb 12.8 Hct 38.6 MCV 98.5 MCH 32.7 H MCHC 33.2 RDW 13.5 Plt Count 208 MPV 11.7 H Neut % (Auto) 80.2 H Lymph % (Auto) 10.6 [place] % (Auto) 6.9 Eos % (Auto) 1.6 Baso % (Auto) 0.2 Neut # (Auto) 6.4 Lymph # (Auto) 0.9 [place] # (Auto) 0.6 Eos # (Auto) 0.1 Baso # (Auto) 0.0 Sodium 137 Potassium 3.3 L Chloride 103 Carbon Dioxide 27 Anion Gap 10.3 BUN 10 D Creatinine 0.60 Estimated Creat Clear 91 Estimated GFR 100 Est GFR ( Amer) 121 Glucose 98 Calcium 8.1 L Total Bilirubin 0.6 AST 29 ALT 22 Alkaline Phosphatase 78 Total Protein 6.3 Albumin 3.2 L Globulin 3.1 Albumin/Globulin Ratio 1.0 L DS: Diagnosis Discharge Diagnosis (1) Acute perforated appendicitis: Status: Acute Code(s): K35.32 - Acute appendicitis with perforation, localized peritonitis, and gangrene, without abscess (2) S/P laparoscopic appendectomy: Status: Acute Code(s): Z90.49 - Acquired absence of other specified parts of digestive tract (3) Acute appendicitis: Status: Deleted Code(s): K35.80 - Unspecified acute appendicitis (4) Leucocytosis: Status: Acute Code(s): D72.829 - Elevated white blood cell count, unspecified Qualifiers: Leukocytosis type: unspecified Qualified Code(s): D72.829 - Elevated white blood cell count, unspecified (5) Nausea vomiting and diarrhea: Status: Acute Code(s): R11.2 - Nausea with vomiting, unspecified; R19.7 - Diarrhea, unspecified (6) Hypomagnesemia: Status: Acute Code(s): E83.42 - Hypomagnesemia Meds Home Medications and Allergies Home Medications ?Medication ?Instructions ?Recorded ?Confirmed ?Type duloxetine 30 mg capsule,delayed 30 mg PO DAILY 06/06/25 History release hydrocodone 10 mg-acetaminophen 1 tab PO Q4HP PRN Mode rate Pain 06/06/25 06/07/25 History 325 mg tablet (Scale Score 5-6) Held on 06/10/25. Instructions: while taking additional Wells rx nabumetone 750 mg tablet 750 mg PO BID 06/06/2506/06 History amoxicillin 500 mg-potassium 1 tab PO BID #10 tabs 11/28 Rx clavulanate 125 mg tablet hydrocodone 10 mg-acetaminophen 1 tab PO Q6H PRN pain #17 tabs 06/10/25 Rx 325 mg tablet New Prescriptions to Start Prescriptions: amoxicillin-pot clavulanate Hua Rayo hydrocodone-acetaminophen Hua Rayo Allergies Allergy/AdvReac Type Severity Reaction Status Date / Time No Known Allergies Allergy Verified 06/06/25 19:01 Discharge Plan Disposition Patient Disposition: Home, Self-Care Condition: Good Discharge Order Discharge Orders: Discharge Order (Routine); Ordered 06/10/25 Ordered By: Dina Jacobson Follow up Plan Follow up with: Hua Rayo MD [Staff Physician, General Surgery] - 06/14/25 10:30 am Prescriptions/Medication Reconciliation: New hydrocodone-acetaminophen 10-325 mg tablet 1 tab PO Q6H PRN (Reason: pain) Qty: 17 0RF amoxicillin-pot clavulanate 500-125 mg tablet 1 tab PO BID Qty: 10 0RF Continued nabumetone 750 mg tablet 750 mg PO BID duloxetine 30 mg capsule,delayed release(DR/EC) 30 mg PO DAILY Held hydrocodone-acetaminophen 10-325 mg tablet 1 tab PO Q4HP PRN (Reason: Moderate Pain (Scale Score 5-6)) Hold Instructions: while taking additional Wells rx Problem Reconciliation Problems Reviewed?: Yes Patient Discharge Instructions ACTIVITY: Ambulate as tolerated and No heavy lifting DIET: continue same diet Patient Instructions: DI for Abdominal Pain in Adults, DI for Nausea in Adults, DI for Vomiting in Adults, DI for Surgical Site Infection, Laparoscopic Appendectomy Surgery, Stop Light Infection Print Language: Irish Providers Primary Care Provider: Provider,Referral Admit Provider: Karlo Faust Attending Provider: Karlo Faust
--- NOTE | 2025-06-13 11:46 | SW/DCPLANNER ---
Phoned the number that is listed and its the wrong number for the patient. Alfred [employer]
== END 2025-06-10 09:58 | disposition home or self-care (01) | DRG 399 ==
LOC: ER 19:45 → 2ND 22:18
PROVIDERS: Nurse Practitioner Acute Care; Surgery; Admitting Provider Internal Medicine Adolescent Medicine; Emergency Provider Student in an Organized Health Care Education/Training Program; Visit Provider Internal Medicine Adolescent Medicine
PROC: 0DTJ4ZZ Resection of Appendix, Percutaneous Endoscopic Approach (ICD-10-PCS; CPT 44950; principal; 2025-06-07 07:00)
DX: K35.201 Acute appendicitis with generalized peritonitis, with perforation, without abscess (principal); M19.90 Unspecified osteoarthritis, unspecified site; F41.9 Anxiety disorder, unspecified; F32.A Depression, unspecified; Z96.649 Presence of unspecified artificial hip joint; E83.42 Hypomagnesemia; F17.200 Nicotine dependence, unspecified, uncomplicated; Z90.49 Acquired absence of other specified parts of digestive tract; Z79.899 Other long term (current) drug therapy
CPT/HCPCS: 36415; 74177; 80048; 80053; 81001; 83605; 83690; 83735; 85007; 85025; 85610; 86140; 86803; 87389; 88304; 99285; J0131; J1100; J1171; J1200; J1885; J2003; J2250; J2270; J2371; J2405; J2543; J2704; J2795; J3010; J3475; J7030; J7120; Q9967